=== PATIENT | male | born 1940 | race Caucasian/White ===

== ENCOUNTER 2016-02-27 16:50 | Inpatient (IN) | payer MEDICARE, OTHER ==
[2016-02-27] MEDS ORDERED: Budesonide 0.5 MG/2 ML NEB NEB PRN (21:20)
[2016-02-27] MEDS ORDERED: Dextrose 50% Abboject 50 ML SYRINGE SLOW IVP PRN (21:28)
[2016-02-27] MEDS ORDERED: Dextrose 5% in Water 1,000 ML IV PRN (21:28)
[2016-02-27] MEDS ORDERED: HumaLOG 300 UNITS/3 ML VIAL SC PRN (21:28)
[2016-02-27] MEDS: Calcium Carbonate 500 MG ChewTAB PO PRN (22:11)
[2016-02-28] MEDS: Acetaminophen 500 MG TAB PO PRN (01:55)
[2016-02-28] MEDS: Mupirocin 2% Ointment 22 GM Tube TOP SCH ×3 (01:57→20:49)
[2016-02-28] MEDS: Calcium Carbonate 500 MG ChewTAB PO PRN ×2 (03:03→09:31)
[2016-02-28] MEDS ORDERED: Sodium Chloride 0.9% 10 ML ONE ×2 (07:34→08:13)
[2016-02-28] MEDS ORDERED: Furosemide 100 MG/10 ML VIAL ONE (08:13)
[2016-02-28] MEDS: Arformoterol 15 MCG/2 ML NEB NEB SCH ×2 (08:31→20:57)
[2016-02-28 08:34] LABS: #Basophils 0.1 thou/uL (0.0-0.2); #Eosinphils 0.3 thou/uL (0.0-0.7); #Lymphocytes 2.6 thou/uL (1.20-3.40); #Monocytes 1.2 thou/uL (0.11-0.59); #Neutrophils 8.4 thou/uL (1.40-6.50); %Basophils 0.7 % (0.0-1.0); %Eosinophils 2.6 % (0.0-10.0); %Monocytes 9.1 % (0.0-10.0); Hematocrit 39.3 % (42.0-52.0); Mean Platelet Volume 6.8 fL (7.4-10.4); Red Blood Cell (RBC) Count 4.53 mill/uL (4.70-6.10); White Blood Cell (WBC) Count 12.6 thou/uL (4.8-10.8)
[2016-02-28] MEDS: Hydroxychloroquine Sulfate 200 MG TAB PO SCH (08:35)
[2016-02-28] MEDS: predniSONE 20 MG TAB PO SCH (08:35)
[2016-02-28] MEDS: Carvedilol 25 MG TAB PO SCH ×2 (08:35→20:53)
[2016-02-28] MEDS: Valsartan 80 MG TAB PO SCH (08:35)
[2016-02-28] MEDS: FLUoxetine HCl 10 MG CAP PO SCH ×2 (08:36→20:52)
[2016-02-28] MEDS: Sucralfate 1 GM TAB PO SCH ×4 (08:36→20:52)
[2016-02-28 08:40] LABS: ALT (SGPT) 22 U/L (0-55); AST (SGOT) 18 U/L (5-34); Alkaline Phosphatase 99 U/L (40-150); Anion Gap 12 mmol/L (10-20); BUN (Urea Nitrogen) 25 mg/dL (8.4-25.7); Bilirubin, Total 0.6 mg/dL (0.2-1.2); Calc. Creatinine Clearance 122 mL/min (70-130); Calcium 9.7 mg/dL (7.8-10.44); Carbon Dioxide 35 mmol/L (23-31); Chloride 100 mmol/L (98-107); Estimated GFR-MDRD 68; Globulin 2.9 g/dL (2.4-3.5); Protein, Total 6.5 g/dL (5.8-8.1)
[2016-02-28] MEDS ORDERED: Furosemide 100 MG/10 ML VIAL SLOW IVP SCH ×2 (08:45→15:00)
[2016-02-28] MEDS ORDERED: Potassium Chloride 10 MEQ TAB PO SCH (08:45)
[2016-02-28] MEDS: Furosemide 40 MG TAB PO SCH (08:47)
[2016-02-28] MEDS: glyBURIDE 5 MG TAB PO SCH (08:58)
[2016-02-28] MEDS ORDERED: PRENATAL VITAMINS PO SCH (09:00)
--- NOTE | 2016-02-28 15:41 | RAD ---
CHEST 2 VIEWS: DATE: 02/28/16. COMPARISON: Comparison is made with a 02/21/16 study done at [facility]. FINDINGS: There are no adverse changes in the interval. The heart size is stable. There is no congestive ch pancho or pleural effusion. No major lobar infiltrate was seen. There is a small amount of retrocard iac streaking, but I cannot confirm an infiltrate on the PA view. IMPRESSION: Minimal retrocardiac streaking which may or may not be significant. Little change since January. POS: HOME
[2016-02-28] MEDS: HumaLOG 300 UNITS/3 ML VIAL SC PRN (17:13)
[2016-02-28] MEDS ORDERED: Milk Of Magnesia 30 ML UDCUP PO PRN (19:20)
[2016-02-28] MEDS ORDERED: Polyethylene Glycol 3350 17 GM Packet PO PRN (19:22)
[2016-02-28] MEDS: Rivaroxaban 10 MG TAB PO SCH (20:52)
[2016-02-29] MEDS: Calcium Carbonate 500 MG ChewTAB PO PRN ×2 (02:19→08:58)
[2016-02-29] MEDS: Acetaminophen 500 MG TAB PO PRN ×2 (02:38→08:59)
[2016-02-29 06:25] LABS: ALT (SGPT) 19 U/L (0-55); AST (SGOT) 17 U/L (5-34); Alkaline Phosphatase 95 U/L (40-150); Anion Gap 12 mmol/L (10-20); BUN (Urea Nitrogen) 30 mg/dL (8.4-25.7); Bilirubin, Total 0.7 mg/dL (0.2-1.2); Calc. Creatinine Clearance 106 mL/min (70-130); Calcium 9.4 mg/dL (7.8-10.44); Carbon Dioxide 35 mmol/L (23-31); Chloride 101 mmol/L (98-107); Estimated GFR-MDRD 58; Globulin 2.7 g/dL (2.4-3.5); Protein, Total 6.2 g/dL (5.8-8.1)
[2016-02-29] MEDS: Valsartan 80 MG TAB PO SCH (08:41)
[2016-02-29] MEDS: Sucralfate 1 GM TAB PO SCH ×4 (08:42→20:48)
[2016-02-29] MEDS: glyBURIDE 5 MG TAB PO SCH (08:43)
[2016-02-29] MEDS: FLUoxetine HCl 10 MG CAP PO SCH ×2 (08:43→20:49)
[2016-02-29] MEDS: Furosemide 40 MG TAB PO SCH (08:44)
[2016-02-29] MEDS: Carvedilol 25 MG TAB PO SCH ×2 (08:44→20:50)
[2016-02-29] MEDS: Hydroxychloroquine Sulfate 200 MG TAB PO SCH (08:45)
[2016-02-29] MEDS: predniSONE 20 MG TAB PO SCH (08:45)
[2016-02-29] MEDS: Arformoterol 15 MCG/2 ML NEB NEB SCH ×2 (08:45→20:51)
[2016-02-29] MEDS: Mupirocin 2% Ointment 22 GM Tube TOP SCH ×2 (08:47→20:44)
[2016-02-29] MEDS ORDERED: Fluticasone Propionate Nasal Spray 16 gm Bottle NASAL SCH ×2 (10:15→11:00)
[2016-02-29] MEDS: HumaLOG 300 UNITS/3 ML VIAL SC PRN ×2 (12:37→17:40)
[2016-02-29] MEDS ORDERED: Furosemide 100 MG/10 ML VIAL SLOW IVP SCH (14:00)
[2016-02-29] MEDS ORDERED: Potassium Chloride 10 MEQ TAB PO SCH (14:00)
[2016-02-29] MEDS: Rivaroxaban 10 MG TAB PO SCH (20:48)
[2016-03-01] MEDS: Arformoterol 15 MCG/2 ML NEB NEB SCH ×2 (07:53→20:35)
[2016-03-01] MEDS: Sucralfate 1 GM TAB PO SCH ×4 (08:05→20:34)
[2016-03-01] MEDS: FLUoxetine HCl 10 MG CAP PO SCH ×2 (08:05→20:33)
[2016-03-01] MEDS: glyBURIDE 5 MG TAB PO SCH (08:06)
[2016-03-01] MEDS: Carvedilol 25 MG TAB PO SCH ×2 (08:07→20:34)
[2016-03-01] MEDS: Furosemide 40 MG TAB PO SCH (08:07)
[2016-03-01] MEDS: Hydroxychloroquine Sulfate 200 MG TAB PO SCH (08:07)
[2016-03-01] MEDS: Mupirocin 2% Ointment 22 GM Tube TOP SCH ×2 (08:08→20:37)
[2016-03-01] MEDS: predniSONE 20 MG TAB PO SCH (08:08)
[2016-03-01] MEDS: Valsartan 80 MG TAB PO SCH (08:08)
[2016-03-01] MEDS: Fluticasone Propionate Nasal Spray 16 gm Bottle NASAL SCH (08:09)
[2016-03-01] MEDS: Sodium Chloride 0.9% 10 ML ONE ×2 (08:45→16:14)
[2016-03-01 10:07] LABS: ALT (SGPT) 19 U/L (0-55); AST (SGOT) 16 U/L (5-34); Alkaline Phosphatase 103 U/L (40-150); Anion Gap 12 mmol/L (10-20); BUN (Urea Nitrogen) 28 mg/dL (8.4-25.7); Bilirubin, Total 0.5 mg/dL (0.2-1.2); Calc. Creatinine Clearance 113 mL/min (70-130); Carbon Dioxide 33 mmol/L (23-31); Chloride 101 mmol/L (98-107); Estimated GFR-MDRD 62; Globulin 2.7 g/dL (2.4-3.5); Protein, Total 6.1 g/dL (5.8-8.1)
[2016-03-01] MEDS: HumaLOG 300 UNITS/3 ML VIAL SC PRN ×2 (13:10→17:46)
--- NOTE | 2016-03-01 15:43 | RAD ---
CHEST THREE VIEWS: Date: 03-01-16 Technique: Two PA views and one lateral were obtained and compared with a 02-28-16 study. FINDINGS: There has been no significant interval change. The heart size remains normal. There are no congest soheila finding or pleural effusions. No focal pulmonary infiltrates were seen. IMPRESSION: No acute findings. POS: HOME
[2016-03-01] MEDS ORDERED: Potassium Chloride 10 MEQ TAB PO SCH (16:00)
[2016-03-01] MEDS: Furosemide 100 MG/10 ML VIAL SLOW IVP SCH (16:12)
[2016-03-01] MEDS ORDERED: Hydrocortisone Acetate 25 MG Suppository PR PRN (18:39)
[2016-03-01] MEDS: Rivaroxaban 10 MG TAB PO SCH (20:33)
[2016-03-01] MEDS: Acetaminophen 500 MG TAB PO PRN (20:34)
[2016-03-02 07:45] LABS: ALT (SGPT) 19 U/L (0-55); AST (SGOT) 15 U/L (5-34); Alkaline Phosphatase 92 U/L (40-150); Anion Gap 9 mmol/L (10-20); BUN (Urea Nitrogen) 27 mg/dL (8.4-25.7); Bilirubin, Total 0.5 mg/dL (0.2-1.2); Calc. Creatinine Clearance 120 mL/min (70-130); Calcium 9.1 mg/dL (7.8-10.44); Carbon Dioxide 37 mmol/L (23-31); Chloride 100 mmol/L (98-107); Estimated GFR-MDRD 66; Globulin 2.7 g/dL (2.4-3.5); Protein, Total 6.1 g/dL (5.8-8.1)
[2016-03-02] MEDS: predniSONE 20 MG TAB PO SCH (08:20)
[2016-03-02] MEDS: Sucralfate 1 GM TAB PO SCH ×4 (08:20→21:02)
[2016-03-02] MEDS: glyBURIDE 5 MG TAB PO SCH (08:20)
[2016-03-02] MEDS: FLUoxetine HCl 10 MG CAP PO SCH ×2 (08:35→21:01)
[2016-03-02] MEDS: Valsartan 80 MG TAB PO SCH (08:36)
[2016-03-02] MEDS: Stress 600 With Zinc 1 TAB PO SCH (08:36)
[2016-03-02] MEDS: Mupirocin 2% Ointment 22 GM Tube TOP SCH ×2 (08:37→23:01)
[2016-03-02] MEDS: Hydroxychloroquine Sulfate 200 MG TAB PO SCH (08:37)
[2016-03-02] MEDS: Carvedilol 25 MG TAB PO SCH ×2 (08:37→21:03)
[2016-03-02] MEDS: Fluticasone Propionate Nasal Spray 16 gm Bottle NASAL SCH (08:38)
[2016-03-02] MEDS: Arformoterol 15 MCG/2 ML NEB NEB SCH ×2 (08:39→21:04)
[2016-03-02] MEDS: Furosemide 100 MG/10 ML VIAL SLOW IVP SCH (10:16)
[2016-03-02] MEDS: HumaLOG 300 UNITS/3 ML VIAL SC PRN ×2 (11:51→17:26)
[2016-03-02] MEDS: Rivaroxaban 10 MG TAB PO SCH (21:01)
[2016-03-03] MEDS: SULFASALAZINE 500 MG PO SCH (08:26)
[2016-03-03] MEDS: glyBURIDE 5 MG TAB PO SCH (08:27)
[2016-03-03] MEDS: predniSONE 20 MG TAB PO SCH (08:27)
[2016-03-03] MEDS: Sucralfate 1 GM TAB PO SCH ×4 (08:27→20:26)
[2016-03-03] MEDS: Potassium Chloride 10 MEQ TAB PO SCH (08:28)
[2016-03-03] MEDS: Stress 600 With Zinc 1 TAB PO SCH (08:36)
[2016-03-03] MEDS: FLUoxetine HCl 10 MG CAP PO SCH ×2 (08:37→20:26)
[2016-03-03] MEDS: Hydroxychloroquine Sulfate 200 MG TAB PO SCH (08:37)
[2016-03-03] MEDS: Valsartan 80 MG TAB PO SCH (08:37)
[2016-03-03] MEDS: Carvedilol 25 MG TAB PO SCH ×2 (08:38→20:26)
[2016-03-03] MEDS: Furosemide 100 MG/10 ML VIAL SLOW IVP SCH (08:44)
[2016-03-03] MEDS: Arformoterol 15 MCG/2 ML NEB NEB SCH ×2 (08:45→20:27)
[2016-03-03] MEDS: Mupirocin 2% Ointment 22 GM Tube TOP SCH ×2 (08:58→20:32)
[2016-03-03] MEDS: Fluticasone Propionate Nasal Spray 16 gm Bottle NASAL SCH (09:19)
[2016-03-03] MEDS: HumaLOG 300 UNITS/3 ML VIAL SC PRN (12:11)
[2016-03-03] MEDS: guaiFENesin ER 600 MG TAB PO PRN (13:25)
[2016-03-03] MEDS ORDERED: Furosemide 100 MG/10 ML VIAL SLOW IVP ONE (15:00)
[2016-03-03] MEDS: Acetaminophen 500 MG TAB PO PRN (20:26)
[2016-03-03] MEDS: Rivaroxaban 10 MG TAB PO SCH (20:27)
[2016-03-04] MEDS: guaiFENesin ER 600 MG TAB PO PRN (05:28)
[2016-03-04 06:14] LABS: ALT (SGPT) 17 U/L (0-55); AST (SGOT) 15 U/L (5-34); Alkaline Phosphatase 90 U/L (40-150); Anion Gap 12 mmol/L (10-20); BUN (Urea Nitrogen) 31 mg/dL (8.4-25.7); Bilirubin, Total 0.4 mg/dL (0.2-1.2); Calc. Creatinine Clearance 115 mL/min (70-130); Calcium 9.3 mg/dL (7.8-10.44); Carbon Dioxide 33 mmol/L (23-31); Chloride 101 mmol/L (98-107); Estimated GFR-MDRD 62; Globulin 2.8 g/dL (2.4-3.5); Protein, Total 6.4 g/dL (5.8-8.1)
[2016-03-04] MEDS: Arformoterol 15 MCG/2 ML NEB NEB SCH ×2 (07:25→21:12)
[2016-03-04] MEDS: glyBURIDE 5 MG TAB PO SCH (07:26)
[2016-03-04] MEDS: Sucralfate 1 GM TAB PO SCH ×4 (07:26→21:03)
[2016-03-04] MEDS ORDERED: predniSONE 10 MG TAB PO SCH (08:00)
[2016-03-04] MEDS: FLUoxetine HCl 10 MG CAP PO SCH ×2 (08:50→21:03)
[2016-03-04] MEDS: Potassium Chloride 10 MEQ TAB PO SCH (08:50)
[2016-03-04] MEDS: Valsartan 80 MG TAB PO SCH (08:51)
[2016-03-04] MEDS: Stress 600 With Zinc 1 TAB PO SCH (08:51)
[2016-03-04] MEDS: Furosemide 100 MG/10 ML VIAL SLOW IVP SCH (08:57)
[2016-03-04] MEDS: Carvedilol 25 MG TAB PO SCH ×2 (08:57→21:03)
[2016-03-04] MEDS: Hydroxychloroquine Sulfate 200 MG TAB PO SCH (08:57)
[2016-03-04] MEDS: Mupirocin 2% Ointment 22 GM Tube TOP SCH ×2 (09:04→21:03)
[2016-03-04] MEDS: Fluticasone Propionate Nasal Spray 16 gm Bottle NASAL SCH (09:04)
[2016-03-04] MEDS: HumaLOG 300 UNITS/3 ML VIAL SC PRN (12:01)
[2016-03-04] MEDS: Rivaroxaban 10 MG TAB PO SCH (21:03)
[2016-03-05] MEDS: Calcium Carbonate 500 MG ChewTAB PO PRN (00:56)
[2016-03-05] MEDS: Hydrocortisone 1% Cream 30 GM TUBE TOP PRN (02:00)
[2016-03-05] MEDS: Arformoterol 15 MCG/2 ML NEB NEB SCH ×2 (08:42→21:08)
[2016-03-05] MEDS: Mupirocin 2% Ointment 22 GM Tube TOP SCH ×2 (08:47→21:03)
[2016-03-05] MEDS: Fluticasone Propionate Nasal Spray 16 gm Bottle NASAL SCH (08:49)
[2016-03-05] MEDS: Valsartan 80 MG TAB PO SCH (08:50)
[2016-03-05] MEDS: Sucralfate 1 GM TAB PO SCH ×4 (08:50→21:04)
[2016-03-05] MEDS: Carvedilol 25 MG TAB PO SCH ×2 (08:50→21:07)
[2016-03-05] MEDS: glyBURIDE 5 MG TAB PO SCH (08:50)
[2016-03-05] MEDS: FLUoxetine HCl 10 MG CAP PO SCH ×2 (08:52→21:06)
[2016-03-05] MEDS: Potassium Chloride 10 MEQ TAB PO SCH (08:52)
[2016-03-05] MEDS: Stress 600 With Zinc 1 TAB PO SCH (08:52)
[2016-03-05] MEDS: Hydroxychloroquine Sulfate 200 MG TAB PO SCH (08:53)
[2016-03-05] MEDS: predniSONE 10 MG TAB PO SCH (08:56)
[2016-03-05] MEDS: Furosemide 100 MG/10 ML VIAL SLOW IVP SCH (09:05)
[2016-03-05] MEDS ORDERED: Potassium Chloride 10 MEQ TAB PO SCH (15:00)
[2016-03-05] MEDS ORDERED: Furosemide 100 MG/10 ML VIAL SLOW IVP SCH (15:00)
[2016-03-05] MEDS ORDERED: Potassium Chloride 20 MEQ TAB PO SCH (15:00)
[2016-03-05] MEDS: Rivaroxaban 10 MG TAB PO SCH (21:06)
[2016-03-06 05:40] LABS: ALT (SGPT) 22 U/L (0-55); AST (SGOT) 21 U/L (5-34); Alkaline Phosphatase 89 U/L (40-150); Anion Gap 13 mmol/L (10-20); Bilirubin, Total 0.4 mg/dL (0.2-1.2); Calc. Creatinine Clearance 118 mL/min (70-130); Carbon Dioxide 29 mmol/L (23-31); Chloride 103 mmol/L (98-107); Estimated GFR-MDRD 63; Globulin 2.7 g/dL (2.4-3.5); Protein, Total 6.1 g/dL (5.8-8.1)
[2016-03-06 07:45] LABS: BUN (Urea Nitrogen) 33 mg/dL (8.4-25.7)
[2016-03-06] MEDS: predniSONE 10 MG TAB PO SCH (09:30)
[2016-03-06] MEDS: Carvedilol 25 MG TAB PO SCH ×2 (09:30→20:56)
[2016-03-06] MEDS: Potassium Chloride 10 MEQ TAB PO SCH ×3 (09:30→15:25)
[2016-03-06] MEDS: Valsartan 80 MG TAB PO SCH (09:30)
[2016-03-06] MEDS: Mupirocin 2% Ointment 22 GM Tube TOP SCH ×2 (09:30→20:58)
[2016-03-06] MEDS: glyBURIDE 5 MG TAB PO SCH (09:30)
[2016-03-06] MEDS: Fluticasone Propionate Nasal Spray 16 gm Bottle NASAL SCH (09:30)
[2016-03-06] MEDS: FLUoxetine HCl 10 MG CAP PO SCH ×2 (09:30→20:55)
[2016-03-06] MEDS: Hydroxychloroquine Sulfate 200 MG TAB PO SCH (09:30)
[2016-03-06] MEDS: Sucralfate 1 GM TAB PO SCH ×4 (09:30→20:56)
[2016-03-06] MEDS: Stress 600 With Zinc 1 TAB PO SCH (09:30)
[2016-03-06] MEDS: Furosemide 100 MG/10 ML VIAL SLOW IVP SCH ×2 (09:30→15:25)
[2016-03-06] MEDS: Arformoterol 15 MCG/2 ML NEB NEB SCH ×2 (09:40→20:56)
[2016-03-06] MEDS: HumaLOG 300 UNITS/3 ML VIAL SC PRN ×2 (13:09→18:17)
[2016-03-06] MEDS: Rivaroxaban 10 MG TAB PO SCH (20:55)
[2016-03-07] MEDS: Acetaminophen 500 MG TAB PO PRN (00:50)
[2016-03-07] MEDS: Calcium Carbonate 500 MG ChewTAB PO PRN (00:51)
[2016-03-07 05:40] LABS: Anion Gap 12 mmol/L (10-20); BUN (Urea Nitrogen) 36 mg/dL (8.4-25.7); Calc. Creatinine Clearance 109 mL/min (70-130); Calcium 9.2 mg/dL (7.8-10.44); Carbon Dioxide 30 mmol/L (23-31); Chloride 103 mmol/L (98-107); Estimated GFR-MDRD 59
[2016-03-07] MEDS: Fluticasone Propionate Nasal Spray 16 gm Bottle NASAL SCH (09:18)
[2016-03-07] MEDS: Stress 600 With Zinc 1 TAB PO SCH (09:19)
[2016-03-07] MEDS: predniSONE 10 MG TAB PO SCH (09:19)
[2016-03-07] MEDS: Valsartan 80 MG TAB PO SCH (09:20)
[2016-03-07] MEDS: Hydroxychloroquine Sulfate 200 MG TAB PO SCH (09:20)
[2016-03-07] MEDS: Potassium Chloride 10 MEQ TAB PO SCH ×2 (09:21→14:59)
[2016-03-07] MEDS: Carvedilol 25 MG TAB PO SCH ×2 (09:21→20:27)
[2016-03-07] MEDS: glyBURIDE 5 MG TAB PO SCH (09:21)
[2016-03-07] MEDS: Sucralfate 1 GM TAB PO SCH ×4 (09:21→20:26)
[2016-03-07] MEDS: FLUoxetine HCl 10 MG CAP PO SCH ×2 (09:22→20:26)
[2016-03-07] MEDS: Furosemide 100 MG/10 ML VIAL SLOW IVP SCH ×2 (09:25→14:59)
[2016-03-07] MEDS: Mupirocin 2% Ointment 22 GM Tube TOP SCH ×2 (09:26→20:33)
[2016-03-07] MEDS: Arformoterol 15 MCG/2 ML NEB NEB SCH ×2 (09:27→20:24)
[2016-03-07] MEDS: Rivaroxaban 10 MG TAB PO SCH (20:26)
[2016-03-08] MEDS: Arformoterol 15 MCG/2 ML NEB NEB SCH ×2 (08:20→21:08)
[2016-03-08] MEDS: Furosemide 100 MG/10 ML VIAL SLOW IVP SCH ×2 (08:33→16:10)
[2016-03-08] MEDS: Hydroxychloroquine Sulfate 200 MG TAB PO SCH (08:41)
[2016-03-08] MEDS: Stress 600 With Zinc 1 TAB PO SCH (08:42)
[2016-03-08] MEDS: Carvedilol 25 MG TAB PO SCH ×2 (08:42→20:56)
[2016-03-08] MEDS: FLUoxetine HCl 10 MG CAP PO SCH ×2 (08:43→20:55)
[2016-03-08] MEDS: predniSONE 10 MG TAB PO SCH (08:43)
[2016-03-08] MEDS: Valsartan 80 MG TAB PO SCH (08:43)
[2016-03-08] MEDS: glyBURIDE 5 MG TAB PO SCH (08:44)
[2016-03-08] MEDS: Potassium Chloride 10 MEQ TAB PO SCH ×2 (08:44→16:10)
[2016-03-08] MEDS: Sucralfate 1 GM TAB PO SCH ×4 (08:44→20:54)
[2016-03-08] MEDS: Fluticasone Propionate Nasal Spray 16 gm Bottle NASAL SCH (08:45)
[2016-03-08] MEDS: Mupirocin 2% Ointment 22 GM Tube TOP SCH ×2 (08:45→20:56)
[2016-03-08 09:48] LABS: Anion Gap 14 mmol/L (10-20); BUN (Urea Nitrogen) 36 mg/dL (8.4-25.7); Calc. Creatinine Clearance 111 mL/min (70-130); Calcium 9.2 mg/dL (7.8-10.44); Carbon Dioxide 30 mmol/L (23-31); Chloride 101 mmol/L (98-107); Estimated GFR-MDRD 60
[2016-03-08] MEDS: Rivaroxaban 10 MG TAB PO SCH (20:54)
[2016-03-08] MEDS: Calcium Carbonate 500 MG ChewTAB PO PRN (23:26)
[2016-03-09] MEDS: Calcium Carbonate 500 MG ChewTAB PO PRN ×2 (05:49→21:33)
[2016-03-09] MEDS: predniSONE 10 MG TAB PO SCH (09:09)
[2016-03-09] MEDS: glyBURIDE 5 MG TAB PO SCH (09:11)
[2016-03-09] MEDS: Sucralfate 1 GM TAB PO SCH ×4 (09:11→21:44)
[2016-03-09] MEDS: FLUoxetine HCl 10 MG CAP PO SCH ×2 (09:50→21:44)
[2016-03-09] MEDS: Stress 600 With Zinc 1 TAB PO SCH (09:50)
[2016-03-09] MEDS: Valsartan 80 MG TAB PO SCH (09:51)
[2016-03-09] MEDS: Carvedilol 25 MG TAB PO SCH ×2 (09:52→21:44)
[2016-03-09] MEDS: Potassium Chloride 10 MEQ TAB PO SCH ×2 (09:52→15:54)
[2016-03-09] MEDS: Fluticasone Propionate Nasal Spray 16 gm Bottle NASAL SCH (09:57)
[2016-03-09] MEDS: Furosemide 100 MG/10 ML VIAL SLOW IVP SCH ×2 (09:58→15:55)
[2016-03-09] MEDS: Mupirocin 2% Ointment 22 GM Tube TOP SCH ×2 (09:59→21:45)
[2016-03-09] MEDS: Hydroxychloroquine Sulfate 200 MG TAB PO SCH (11:45)
[2016-03-09] MEDS: HumaLOG 300 UNITS/3 ML VIAL SC PRN (12:32)
[2016-03-09] MEDS: Arformoterol 15 MCG/2 ML NEB NEB SCH ×2 (14:06→21:39)
[2016-03-09] MEDS: Rivaroxaban 10 MG TAB PO SCH (21:44)
[2016-03-10] MEDS: Calcium Carbonate 500 MG ChewTAB PO PRN ×3 (00:20→20:04)
[2016-03-10 05:35] LABS: #Basophils 0.1 thou/uL (0.0-0.2); #Eosinphils 0.1 thou/uL (0.0-0.7); #Monocytes 0.9 thou/uL (0.11-0.59); %Eosinophils 1.4 % (0.0-10.0); %Monocytes 10.2 % (0.0-10.0); Hematocrit 37.9 % (42.0-52.0); Mean Platelet Volume 7.1 fL (7.4-10.4); Red Blood Cell (RBC) Count 4.29 mill/uL (4.70-6.10); White Blood Cell (WBC) Count 9.1 thou/uL (4.8-10.8)
[2016-03-10 05:48] LABS: ALT (SGPT) 19 U/L (0-55); AST (SGOT) 15 U/L (5-34); Alkaline Phosphatase 100 U/L (40-150); Anion Gap 13 mmol/L (10-20); BUN (Urea Nitrogen) 35 mg/dL (8.4-25.7); Bilirubin, Total 0.5 mg/dL (0.2-1.2); Calc. Creatinine Clearance 114 mL/min (70-130); Calcium 9.5 mg/dL (7.8-10.44); Carbon Dioxide 32 mmol/L (23-31); Chloride 104 mmol/L (98-107); Estimated GFR-MDRD 62; Globulin 2.7 g/dL (2.4-3.5); Protein, Total 6.1 g/dL (5.8-8.1)
[2016-03-10] MEDS: glyBURIDE 5 MG TAB PO SCH (08:31)
[2016-03-10] MEDS: Sucralfate 1 GM TAB PO SCH ×4 (08:32→20:26)
[2016-03-10] MEDS: Stress 600 With Zinc 1 TAB PO SCH (08:32)
[2016-03-10] MEDS: FLUoxetine HCl 10 MG CAP PO SCH ×2 (08:33→20:27)
[2016-03-10] MEDS: Potassium Chloride 10 MEQ TAB PO SCH ×2 (08:34→14:39)
[2016-03-10] MEDS: Valsartan 80 MG TAB PO SCH (08:36)
[2016-03-10] MEDS: Hydroxychloroquine Sulfate 200 MG TAB PO SCH (08:37)
[2016-03-10] MEDS: Carvedilol 25 MG TAB PO SCH ×2 (08:38→20:27)
[2016-03-10] MEDS: Fluticasone Propionate Nasal Spray 16 gm Bottle NASAL SCH (08:39)
[2016-03-10] MEDS: Furosemide 100 MG/10 ML VIAL SLOW IVP SCH (08:40)
[2016-03-10] MEDS: predniSONE 10 MG TAB PO SCH (08:50)
[2016-03-10] MEDS: Arformoterol 15 MCG/2 ML NEB NEB SCH ×2 (08:50→20:40)
[2016-03-10] MEDS: Mupirocin 2% Ointment 22 GM Tube TOP SCH ×2 (08:59→20:41)
[2016-03-10] MEDS ORDERED: Metolazone 5 MG TAB PO SCH (14:00)
[2016-03-10] MEDS: Furosemide 40 MG TAB PO SCH (20:26)
[2016-03-10] MEDS: Rivaroxaban 10 MG TAB PO SCH (20:27)
[2016-03-11] MEDS: Sucralfate 1 GM TAB PO SCH ×4 (07:55→20:59)
[2016-03-11] MEDS: glyBURIDE 5 MG TAB PO SCH (07:56)
[2016-03-11] MEDS: predniSONE 10 MG TAB PO SCH (07:56)
[2016-03-11] MEDS: Metolazone 5 MG TAB PO SCH (08:03)
[2016-03-11] MEDS: Stress 600 With Zinc 1 TAB PO SCH (08:05)
[2016-03-11] MEDS: FLUoxetine HCl 10 MG CAP PO SCH ×2 (08:05→20:59)
[2016-03-11] MEDS: Valsartan 80 MG TAB PO SCH (08:07)
[2016-03-11] MEDS: Hydroxychloroquine Sulfate 200 MG TAB PO SCH (08:07)
[2016-03-11] MEDS: Carvedilol 25 MG TAB PO SCH ×2 (08:08→20:58)
[2016-03-11] MEDS: Mupirocin 2% Ointment 22 GM Tube TOP SCH ×2 (08:38→20:59)
[2016-03-11] MEDS: Furosemide 40 MG TAB PO SCH ×2 (08:39→20:58)
[2016-03-11] MEDS: Fluticasone Propionate Nasal Spray 16 gm Bottle NASAL SCH (08:39)
[2016-03-11] MEDS: Potassium Chloride 10 MEQ TAB PO SCH ×2 (08:39→14:48)
[2016-03-11] MEDS: Arformoterol 15 MCG/2 ML NEB NEB SCH ×2 (08:40→20:57)
[2016-03-11] MEDS: Acetaminophen 500 MG TAB PO PRN (11:22)
[2016-03-11] MEDS ORDERED: Budesonide 0.5 MG/2 ML NEB NEB PRN (14:05)
[2016-03-11] MEDS: Rivaroxaban 10 MG TAB PO SCH (20:58)
[2016-03-12] MEDS: Arformoterol 15 MCG/2 ML NEB NEB SCH ×2 (09:22→22:23)
[2016-03-12] MEDS: Furosemide 40 MG TAB PO SCH ×2 (09:26→15:18)
[2016-03-12] MEDS: Potassium Chloride 10 MEQ TAB PO SCH ×2 (09:26→15:19)
[2016-03-12] MEDS: predniSONE 10 MG TAB PO SCH (09:27)
[2016-03-12] MEDS: glyBURIDE 5 MG TAB PO SCH (09:30)
[2016-03-12] MEDS: FLUoxetine HCl 10 MG CAP PO SCH ×2 (09:30→20:48)
[2016-03-12] MEDS: Sucralfate 1 GM TAB PO SCH ×4 (09:31→20:42)
[2016-03-12] MEDS: Valsartan 80 MG TAB PO SCH (09:32)
[2016-03-12] MEDS: Carvedilol 25 MG TAB PO SCH ×2 (09:32→20:42)
[2016-03-12] MEDS: Stress 600 With Zinc 1 TAB PO SCH (09:33)
[2016-03-12] MEDS: Hydroxychloroquine Sulfate 200 MG TAB PO SCH (09:33)
[2016-03-12] MEDS: Metolazone 5 MG TAB PO SCH (09:34)
[2016-03-12] MEDS: Mupirocin 2% Ointment 22 GM Tube TOP SCH ×2 (09:35→20:47)
[2016-03-12] MEDS: Fluticasone Propionate Nasal Spray 16 gm Bottle NASAL SCH (09:35)
[2016-03-12] MEDS: Acetaminophen 500 MG TAB PO PRN (15:24)
[2016-03-12] MEDS: Rivaroxaban 10 MG TAB PO SCH (20:42)
[2016-03-12] MEDS ORDERED: Rivaroxaban 10 MG TAB ONE (20:45)
[2016-03-13] MEDS: Stress 600 With Zinc 1 TAB PO SCH (08:17)
[2016-03-13] MEDS: glyBURIDE 5 MG TAB PO SCH (08:18)
[2016-03-13] MEDS: Potassium Chloride 10 MEQ TAB PO SCH ×2 (08:18→14:57)
[2016-03-13] MEDS: Sucralfate 1 GM TAB PO SCH ×4 (08:18→20:52)
[2016-03-13] MEDS: Furosemide 40 MG TAB PO SCH ×2 (08:20→14:57)
[2016-03-13] MEDS: Valsartan 80 MG TAB PO SCH (08:21)
[2016-03-13] MEDS: predniSONE 10 MG TAB PO SCH (08:21)
[2016-03-13] MEDS: Metolazone 5 MG TAB PO SCH (08:24)
[2016-03-13] MEDS: Hydroxychloroquine Sulfate 200 MG TAB PO SCH (08:26)
[2016-03-13] MEDS: Carvedilol 25 MG TAB PO SCH ×2 (08:26→20:55)
[2016-03-13] MEDS: Fluticasone Propionate Nasal Spray 16 gm Bottle NASAL SCH (08:30)
[2016-03-13] MEDS: Mupirocin 2% Ointment 22 GM Tube TOP SCH ×2 (08:31→20:51)
[2016-03-13] MEDS: Arformoterol 15 MCG/2 ML NEB NEB SCH ×2 (08:31→20:48)
[2016-03-13] MEDS: FLUoxetine HCl 10 MG CAP PO SCH ×2 (12:25→20:51)
[2016-03-13 19:08] LABS: #Basophils 0.1 thou/uL (0.0-0.2); #Eosinphils 0.1 thou/uL (0.0-0.7); #Lymphocytes 2.5 thou/uL (1.20-3.40); %Basophils 0.6 % (0.0-1.0); %Eosinophils 1.5 % (0.0-10.0); %Monocytes 10.1 % (0.0-10.0); Hematocrit 40.4 % (42.0-52.0); Mean Platelet Volume 6.7 fL (7.4-10.4); Red Blood Cell (RBC) Count 4.63 mill/uL (4.70-6.10); White Blood Cell (WBC) Count 9.7 thou/uL (4.8-10.8)
[2016-03-13 19:32] LABS: ALT (SGPT) 22 U/L (0-55); AST (SGOT) 18 U/L (5-34); Alkaline Phosphatase 105 U/L (40-150); Anion Gap 17 mmol/L (10-20); BUN (Urea Nitrogen) 54 mg/dL (8.4-25.7); Bilirubin, Total 0.6 mg/dL (0.2-1.2); Calc. Creatinine Clearance 55 mL/min (70-130); Calcium 9.9 mg/dL (7.8-10.44); Carbon Dioxide 36 mmol/L (23-31); Chloride 93 mmol/L (98-107); Estimated GFR-MDRD 28; Globulin 3.2 g/dL (2.4-3.5); Protein, Total 6.9 g/dL (5.8-8.1)
[2016-03-13] MEDS: Rivaroxaban 10 MG TAB PO SCH (20:54)
[2016-03-14] MEDS: Potassium Chloride 10 MEQ TAB PO SCH ×2 (08:20→14:52)
[2016-03-14] MEDS: FLUoxetine HCl 10 MG CAP PO SCH ×2 (08:21→20:33)
[2016-03-14] MEDS: Valsartan 80 MG TAB PO SCH (08:22)
[2016-03-14] MEDS: Carvedilol 25 MG TAB PO SCH ×2 (08:24→20:32)
[2016-03-14] MEDS: Hydroxychloroquine Sulfate 200 MG TAB PO SCH (08:25)
[2016-03-14] MEDS: Furosemide 40 MG TAB PO SCH (08:25)
[2016-03-14] MEDS: Sucralfate 1 GM TAB PO SCH ×4 (08:26→20:32)
[2016-03-14] MEDS: Arformoterol 15 MCG/2 ML NEB NEB SCH ×2 (08:27→20:29)
[2016-03-14] MEDS: glyBURIDE 5 MG TAB PO SCH (08:27)
[2016-03-14] MEDS: Stress 600 With Zinc 1 TAB PO SCH (08:27)
[2016-03-14] MEDS: Fluticasone Propionate Nasal Spray 16 gm Bottle NASAL SCH (08:34)
[2016-03-14] MEDS: Hydrocortisone 1% Cream 30 GM TUBE TOP PRN (08:34)
[2016-03-14] MEDS: Mupirocin 2% Ointment 22 GM Tube TOP SCH ×2 (09:35→20:30)
[2016-03-14] MEDS: Calcium Carbonate 500 MG ChewTAB PO PRN ×2 (14:05→18:44)
[2016-03-14] MEDS: Acetaminophen 500 MG TAB PO PRN (15:35)
[2016-03-14] MEDS: Rivaroxaban 10 MG TAB PO SCH (20:33)
[2016-03-14] MEDS ORDERED: Mag-Al Plus 1200 MG/1200 MG/120 MG/30 ML UDCUP PO SCH (21:15)
[2016-03-15 06:35] LABS: ALT (SGPT) 21 U/L (0-55); AST (SGOT) 18 U/L (5-34); Alkaline Phosphatase 102 U/L (40-150); Anion Gap 17 mmol/L (10-20); BUN (Urea Nitrogen) 62 mg/dL (8.4-25.7); Bilirubin, Total 0.7 mg/dL (0.2-1.2); Calc. Creatinine Clearance 65 mL/min (70-130); Calcium 9.8 mg/dL (7.8-10.44); Carbon Dioxide 35 mmol/L (23-31); Chloride 93 mmol/L (98-107); Estimated GFR-MDRD 33; Globulin 2.9 g/dL (2.4-3.5); Protein, Total 6.5 g/dL (5.8-8.1)
[2016-03-15] MEDS: Sucralfate 1 GM TAB PO SCH ×4 (07:47→20:58)
[2016-03-15] MEDS: glyBURIDE 5 MG TAB PO SCH (07:47)
[2016-03-15] MEDS: Fluticasone Propionate Nasal Spray 16 gm Bottle NASAL SCH (08:50)
[2016-03-15] MEDS: Hydrocortisone 1% Cream 30 GM TUBE TOP PRN (08:51)
[2016-03-15] MEDS: Mupirocin 2% Ointment 22 GM Tube TOP SCH ×2 (08:52→21:36)
[2016-03-15] MEDS: Potassium Chloride 10 MEQ TAB PO SCH ×2 (08:53→14:46)
[2016-03-15] MEDS: FLUoxetine HCl 10 MG CAP PO SCH ×2 (08:54→20:55)
[2016-03-15] MEDS: Valsartan 80 MG TAB PO SCH (08:55)
[2016-03-15] MEDS: Carvedilol 25 MG TAB PO SCH ×2 (08:57→20:55)
[2016-03-15] MEDS: Furosemide 40 MG TAB PO SCH (08:58)
[2016-03-15] MEDS: Arformoterol 15 MCG/2 ML NEB NEB SCH ×2 (08:58→20:54)
[2016-03-15] MEDS: Hydroxychloroquine Sulfate 200 MG TAB PO SCH (08:58)
[2016-03-15] MEDS: Stress 600 With Zinc 1 TAB PO SCH (08:58)
[2016-03-15] MEDS ORDERED: predniSONE 10 MG TAB PO SCH (09:00)
[2016-03-15] MEDS ORDERED: Potassium Chloride 20 MEQ TAB PO SCH (12:30)
[2016-03-15] MEDS: Rivaroxaban 10 MG TAB PO SCH (20:58)
[2016-03-16 06:30] LABS: Anion Gap 17 mmol/L (10-20); BUN (Urea Nitrogen) 57 mg/dL (8.4-25.7); Calc. Creatinine Clearance 81 mL/min (70-130); Calcium 9.8 mg/dL (7.8-10.44); Carbon Dioxide 36 mmol/L (23-31); Chloride 94 mmol/L (98-107); Estimated GFR-MDRD 43
--- NOTE | 2016-03-16 06:59 | RAD ---
CHEST 2 VIEWS: Date: 03/16/16 Comparison is made with the 03/01/16 study. FINDINGS: Heart size is stable. There is no congestion of vessels this morning. There are no lobar consolidati ons or effusions. The lungs are hyperexpanded with flattening of the diaphragm. No lobar consolidati ons appreciated. IMPRESSION: No focal pulmonary findings. No current evidence of vascular congestion. POS: HOME
[2016-03-16] MEDS: Sucralfate 1 GM TAB PO SCH ×4 (08:47→21:22)
[2016-03-16] MEDS: Stress 600 With Zinc 1 TAB PO SCH (08:48)
[2016-03-16] MEDS: glyBURIDE 5 MG TAB PO SCH (08:48)
[2016-03-16] MEDS: FLUoxetine HCl 10 MG CAP PO SCH ×2 (08:48→21:22)
[2016-03-16] MEDS: Furosemide 40 MG TAB PO SCH (08:49)
[2016-03-16] MEDS: Hydroxychloroquine Sulfate 200 MG TAB PO SCH (08:49)
[2016-03-16] MEDS: Carvedilol 25 MG TAB PO SCH ×2 (08:50→21:22)
[2016-03-16] MEDS: Valsartan 80 MG TAB PO SCH (08:50)
[2016-03-16] MEDS: Potassium Chloride 10 MEQ TAB PO SCH ×2 (08:50→16:24)
[2016-03-16] MEDS: Fluticasone Propionate Nasal Spray 16 gm Bottle NASAL SCH (08:51)
[2016-03-16] MEDS: Mupirocin 2% Ointment 22 GM Tube TOP SCH ×2 (08:53→21:25)
[2016-03-16] MEDS: Arformoterol 15 MCG/2 ML NEB NEB SCH ×2 (09:02→21:16)
[2016-03-16] MEDS: Rivaroxaban 10 MG TAB PO SCH (21:22)
[2016-03-16] MEDS: Hydrocortisone 1% Cream 30 GM TUBE TOP PRN (21:23)
[2016-03-17 05:40] VITALS: TEMP 98.1
[2016-03-17] MEDS: Mag-Al Plus 1200 MG/1200 MG/120 MG/30 ML UDCUP PO PRN ×2 (08:46→21:30)
[2016-03-17] MEDS: glyBURIDE 5 MG TAB PO SCH (08:46)
[2016-03-17] MEDS: Sucralfate 1 GM TAB PO SCH ×4 (08:46→21:15)
[2016-03-17] MEDS: Potassium Chloride 10 MEQ TAB PO SCH ×2 (09:23→15:29)
[2016-03-17] MEDS: Fluticasone Propionate Nasal Spray 16 gm Bottle NASAL SCH (09:23)
[2016-03-17] MEDS: FLUoxetine HCl 10 MG CAP PO SCH ×2 (09:25→21:15)
[2016-03-17] MEDS: Stress 600 With Zinc 1 TAB PO SCH (09:25)
[2016-03-17] MEDS: Furosemide 40 MG TAB PO SCH (09:25)
[2016-03-17] MEDS: Valsartan 80 MG TAB PO SCH (09:25)
[2016-03-17] MEDS: Carvedilol 25 MG TAB PO SCH ×2 (09:26→21:15)
[2016-03-17] MEDS: Hydroxychloroquine Sulfate 200 MG TAB PO SCH (09:26)
[2016-03-17] MEDS: Mupirocin 2% Ointment 22 GM Tube TOP SCH ×2 (09:26→21:14)
[2016-03-17] MEDS: Arformoterol 15 MCG/2 ML NEB NEB SCH ×2 (09:30→21:13)
[2016-03-17] MEDS: Rivaroxaban 10 MG TAB PO SCH (21:15)
[2016-03-18 06:35] VITALS: BMI 41.1
[2016-03-18 06:39] VITALS: BP 136/63
[2016-03-18 07:17] LABS: ALT (SGPT) 27 U/L (0-55); AST (SGOT) 21 U/L (5-34); Alkaline Phosphatase 100 U/L (40-150); Anion Gap 13 mmol/L (10-20); BUN (Urea Nitrogen) 46 mg/dL (8.4-25.7); Bilirubin, Total 0.7 mg/dL (0.2-1.2); Calc. Creatinine Clearance 89 mL/min (70-130); Calcium 9.1 mg/dL (7.8-10.44); Carbon Dioxide 35 mmol/L (23-31); Chloride 99 mmol/L (98-107); Estimated GFR-MDRD 48; Globulin 2.2 g/dL (2.4-3.5); Protein, Total 5.7 g/dL (5.8-8.1)
[2016-03-18 07:46] LABS: #Basophils 0.1 thou/uL (0.0-0.2); #Eosinphils 0.2 thou/uL (0.0-0.7); #Lymphocytes 3.1 thou/uL (1.20-3.40); #Neutrophils 4.1 thou/uL (1.40-6.50); %Basophils 1.1 % (0.0-1.0); %Eosinophils 2.5 % (0.0-10.0); %Monocytes 11.4 % (0.0-10.0); Hematocrit 35.6 % (42.0-52.0); Mean Platelet Volume 7.4 fL (7.4-10.4); Red Blood Cell (RBC) Count 4.12 mill/uL (4.70-6.10); White Blood Cell (WBC) Count 8.4 thou/uL (4.8-10.8)
[2016-03-18] MEDS: Mupirocin 2% Ointment 22 GM Tube TOP SCH (09:26)
[2016-03-18] MEDS: Fluticasone Propionate Nasal Spray 16 gm Bottle NASAL SCH (09:26)
[2016-03-18] MEDS: Arformoterol 15 MCG/2 ML NEB NEB SCH (09:27)
[2016-03-18] MEDS: Sucralfate 1 GM TAB PO SCH ×3 (09:31→18:15)
[2016-03-18] MEDS: FLUoxetine HCl 10 MG CAP PO SCH (09:31)
[2016-03-18] MEDS: Hydroxychloroquine Sulfate 200 MG TAB PO SCH (09:31)
[2016-03-18] MEDS: Stress 600 With Zinc 1 TAB PO SCH (09:31)
[2016-03-18] MEDS: Valsartan 80 MG TAB PO SCH (09:31)
[2016-03-18] MEDS: Potassium Chloride 10 MEQ TAB PO SCH ×2 (09:33→14:20)
[2016-03-18] MEDS: Furosemide 40 MG TAB PO SCH (09:34)
[2016-03-18] MEDS: glyBURIDE 5 MG TAB PO SCH (09:34)
[2016-03-18] MEDS: Carvedilol 25 MG TAB PO SCH (09:34)
--- NOTE | 2016-03-19 01:39 | HP ---
DATE OF ADMISSION: 02/27/2016 REASON FOR TRANSFER: Skilled physical therapy, occupational therapy and management of COPD and CHF. BRIEF SUMMARY OF HISTORY AND PHYSICAL: Patient is a 76-year-old white male who over the last month and a half has had frequent admissions to the hospital related to chronic obstructive pulmonary dise ase exacerbation and volume overload. The patient was most recently admitted at [facility] on 02/21/2016 for acute hypoxic respiratory failure, which improved as well as acute on chronic diastolic heart failure as well as paroxysmal atrial fibrillation and obstructive sleep a pnea with history of noncompliance. The patient has very slow improvement of his symptoms. He was continued to be extremely weak and debilitated, unable to ambulate due to shortness of breath and we akness and continued to have lower extremity edema. Thus, he was transferred from [facility] to [facility] for continued physical therapy, occupational t herapy, and management of diastolic heart failure and COPD. PAST MEDICAL HISTORY: 1. COPD, O2 dependent. 2. Chronic diastolic heart failure. 3. Paroxysmal atrial fibrillation. 4. Obstructive sleep apnea. 5. Morbid obesity. 6. Pulmonary hypertension. 7. History of rheumatoid arthritis. 8. History of psoriasis. MEDICATIONS: Brovana 15 mcg nebulized b.i.d., aspirin 81 mg daily, budesonide, carvedilol 25 mg p.o . b.i.d., fluoxetine 15 mg p.o. daily, Lasix 80 mg b.i.d, Plaquenil 20 mg daily, Toprol-XL 50 mg manisha ly, omeprazole 40 mg p.o. b.i.d., Xarelto 20 mg at bedtime, Carafate 1 gram q.a.c. and at bedtime, C oQ10 100 mg daily, valsartan 320 mg daily, glyburide 5 mg daily, hydralazine 25 mg p.o. b.i.d. and p .o. prednisone for which he has been on a taper, sulfasalazine 500 mg p.o. daily. For full history and physical, see recent admission note. REVIEW OF SYSTEMS: GENERAL: The patient reports of nasal congestion, continues to have cough, mainly dry, but occasion ally productive. The patient reports no sore throat, no chest pain, but has shortness of breath wit h any activity or speech. The patient reports some intermittent constipation which is currently sta ble. No abdominal pain, nausea reported other than what he reports as epigastric heartburn. The pa naila denies any diarrhea. Patient denies any obvious visual changes. The patient does report bein g hard of hearing chronically. The patient has chronic rashes related to psoriasis on his extremiti es. He reports chronic lower extremity edema 2+ at baseline. The patient reports occasional low ba ck pain, which is stable. The patient denies obvious depression. Patient denies any recent history of bleeding disorders. He does report generalized debilitation. PHYSICAL EXAMINATION: VITAL SIGNS: Blood pressure 148/68, respiratory rate 24, pulse was irregular mainly in the 80s. HEENT: Atraumatic, normocephalic. Extraocular movements are intact. Oropharynx, mucous membranes were dry. NECK: Supple, no masses were palpated. CHEST: Decreased breath sounds with rhonchi bilaterally occasionally. HEART: Regular rate and rhythm with occasional ectopic beats. ABDOMEN: Obese, soft, nontender, nondistended, no masses were palpated. EXTREMITIES: A 3+ edema up to the mid calf bilaterally with multiple psoriatic lesions on the espinosa and calf. ASSESSMENT AND PLAN: 1. Chronic obstructive pulmonary disease exacerbation. Patient will be weaned off prednisone, cont inue nebs, oxygen as needed and hopefully we will be able to discontinue his prednisone in the next week to 2 weeks. 2. Diastolic heart failure. The patient does have 3+ edema. We will try oral Lasix if not effecti ve, may have to go to IV Lasix for several days and monitor fluid status and sodium status. 3. Paroxysmal atrial fibrillation, presently controlled. Continue Xarelto and beta -juan ramon. 4. Sleep apnea. Patient has a CPAP machine, it is functional and he was encouraged to be compliant with it. 5. Generalized weakness. Physical Therapy and Occupational Therapy will be consulted. DISPOSITION: Plan is for the patient to be discharged to home once he is improved significantly.
--- NOTE | 2016-03-19 03:26 | DIS ---
DATE OF ADMISSION: 02/27/2016 DATE OF DISCHARGE: 03/18/2016 ADMISSION DIAGNOSES: 1. Generalized weakness, debilitation. 2. Chronic and acute diastolic heart failure. 3. Chronic obstructive pulmonary disease exacerbation. 4. Psoriatic arthritis with psoriasis. 5. Sleep apnea. DISCHARGE DIAGNOSES: 1. Diastolic heart failure, stable. 2. Chronic obstructive pulmonary disease exacerbation, improved. 3. Sleep apnea, compliant with CPAP. 4. Psoriatic arthritis. 5. Generalized debilitation, improved. BRIEF SUMMARY OF HOSPITAL COURSE: The patient is a 76-year-old white male who was admitted for diff use debilitation. Physical therapy and occupational therapy was initiated. Patient also had an exa cerbation of his diastolic heart failure requiring IV diuretics for several days. Once the patient diuresed of about 10 pounds, his BUN and creatinine began to creep up with either IV and/or p.o Lasi x with Zaroxolyn, his Lasix was decreased to 80 mg daily. The patient was given instructions on how to monitor his fluid status on an outpatient basis. The patient's strength overall improved during his hospitalization and he will continue with home health, physical therapy and occupational therap y. The patient will be discharged to home with home health. Appointment will be made with Dr. Perkins , cnc manager; Dr. Woodson, [facility] [employer] [facility]. The patient had previously b een seen at [facility] in [place], but he would like to switch to [facility]. Discussed with Dr. Mabry and/or Dr. Alegre in the area, which he may consider choosing in the near future. Instructed the patient to double his Lasix to 80 mg twice a day if he has more than 3 pound of weight gain in 24 hour. All questions were answered.
== END 2016-03-18 19:00 | disposition home health service (06) | DRG 190 ==
LOC: BURMED 16:50
PROVIDERS: ADMIT Family Medicine; ATTEND Family Medicine
DX: J44.1 Chronic obstructive pulmonary disease with (acute) exacerbation (principal); I50.33 Acute on chronic diastolic (congestive) heart failure; N17.9 Acute kidney failure, unspecified; L40.50 Arthropathic psoriasis, unspecified; E11.9 Type 2 diabetes mellitus without complications; I48.91 Unspecified atrial fibrillation; K21.9 Gastro-esophageal reflux disease without esophagitis; G47.33 Obstructive sleep apnea (adult) (pediatric); E66.9 Obesity, unspecified; I10 Essential (primary) hypertension
CPT/HCPCS: 36415; 36416; 71020; 80048; 80053; 83880; 85025; 94640; A4216; G8978-GP-CL; G8979-GP-CJ; G8987-GO-CK; G8988-GO-CI; J1940; J7506; J7512; J7620; J7626

== ENCOUNTER 2016-06-30 12:21 | Outpatient (CLI) | payer MEDICARE, OTHER ==
[2016-06-30 12:50] LABS: #Basophils 0.1 thou/uL (0.0-0.2); #Eosinphils 0.1 thou/uL (0.0-0.7); #Lymphocytes 2.5 thou/uL (1.20-3.40); #Monocytes 0.9 thou/uL (0.11-0.59); #Neutrophils 4.9 thou/uL (1.40-6.50); %Basophils 0.8 % (0.0-1.0); %Eosinophils 1.8 % (0.0-10.0); %Lymphocytes 29.6 % (21.0-51.0); %Monocytes 10.1 % (0.0-10.0); %Neutrophils 57.7 % (42.0-75.0); Hemoglobin 12.5 g/dL (14.0-18.0); Mean Corpuscular HGB CONC 32.4 g/dL (32.0-36.0); Mean Corpuscular Hemoglobin 28.7 pg (27.0-31.0); Mean Corpuscular Volume 88.7 fl (80.0-94.0); Mean Platelet Volume 6.7 fL (7.4-10.4); Platelet Count 231 thou/uL (130-400); RBC Distribution Width 13.7 % (11.5-14.5); Red Blood Cell (RBC) Count 4.36 mill/uL (4.70-6.10); White Blood Cell (WBC) Count 8.4 thou/uL (4.8-10.8)
[2016-06-30 13:06] LABS: ALT (SGPT) 29 U/L (8-55); AST (SGOT) 32 U/L (5-34); Albumin 4.2 g/dL (3.4-4.8); Alkaline Phosphatase 94 U/L (40-150); Anion Gap 15 mmol/L (10-20); BUN (Urea Nitrogen) 41 mg/dL (8.4-25.7); Bilirubin, Total 0.5 mg/dL (0.2-1.2); Calc. Creatinine Clearance 0 mL/min (70-130); Calcium 9.4 mg/dL (7.8-10.44); Carbon Dioxide 31 mmol/L (23-31); Chloride 101 mmol/L (98-107); Estimated GFR-MDRD 34; Globulin 2.8 g/dL (2.4-3.5); Glucose 195 mg/dL (83-110); Magnesium 2.5 mg/dL (1.6-2.6); Potassium 3.9 mmol/L (3.5-5.1); Sodium 143 mmol/L (136-145)
[2016-06-30 18:11] LABS: CRP (Inflammatory) 0.51 mg/dL (= or < 0.5)
== END 2016-06-30 12:22 | disposition home or self-care (01) ==
LOC: BURLAB 12:21
PROVIDERS: ATTEND Internal Medicine Rheumatology
DX: N18.3 Chronic kidney disease, stage 3 (moderate) (principal); L40.50 Arthropathic psoriasis, unspecified; Z79.899 Other long term (current) drug therapy
CPT/HCPCS: 36415; 80053; 83735; 85025; 85652; 86140

== ENCOUNTER 2016-08-13 13:28 | Outpatient (CLI) | payer MEDICARE, OTHER ==
[2016-08-13 13:53] LABS: #Basophils 0.1 thou/uL (0.0-0.2); #Eosinphils 0.9 thou/uL (0.0-0.7); #Lymphocytes 1.7 thou/uL (1.20-3.40); #Monocytes 0.8 thou/uL (0.11-0.59); #Neutrophils 5.4 thou/uL (1.40-6.50); %Basophils 1.3 % (0.0-1.0); %Eosinophils 10.2 % (0.0-10.0); %Lymphocytes 19.2 % (21.0-51.0); %Neutrophils 60.4 % (42.0-75.0); Hemoglobin 11.7 g/dL (14.0-18.0); Mean Corpuscular HGB CONC 32.6 g/dL (32.0-36.0); Mean Corpuscular Hemoglobin 28.5 pg (27.0-31.0); Mean Corpuscular Volume 87.5 fl (80.0-94.0); Mean Platelet Volume 6.6 fL (7.4-10.4); Platelet Count 205 thou/uL (130-400); RBC Distribution Width 13.9 % (11.5-14.5); Red Blood Cell (RBC) Count 4.12 mill/uL (4.70-6.10)
[2016-08-13 14:52] LABS: ALT (SGPT) 23 U/L (8-55); AST (SGOT) 23 U/L (5-34); Albumin 4.1 g/dL (3.4-4.8); Alkaline Phosphatase 88 U/L (40-150); Anion Gap 19 mmol/L (10-20); BUN (Urea Nitrogen) 74 mg/dL (8.4-25.7); Bilirubin, Total 0.4 mg/dL (0.2-1.2); Calc. Creatinine Clearance 0 mL/min (70-130); Calcium 9.2 mg/dL (7.8-10.44); Carbon Dioxide 35 mmol/L (23-31); Chloride 93 mmol/L (98-107); Estimated GFR-MDRD 23; Glucose 259 mg/dL (83-110); Potassium 4.1 mmol/L (3.5-5.1); Protein, Total 7.1 g/dL (5.8-8.1); Sodium 143 mmol/L (136-145)
[2016-08-13 17:38] LABS: CRP (Inflammatory) 1.08 mg/dL (= or < 0.5)
== END 2016-08-13 13:29 | disposition home or self-care (01) ==
LOC: BURLAB 13:28
PROVIDERS: ATTEND Family Medicine
DX: L40.50 Arthropathic psoriasis, unspecified (principal); Z79.899 Other long term (current) drug therapy
CPT/HCPCS: 36415; 80053; 85025; 85652; 86140

== ENCOUNTER 2016-09-04 11:32 | Outpatient (CLI) | payer MEDICARE, OTHER ==
[2016-09-04 12:26] LABS: #Basophils 0.1 thou/uL (0.0-0.2); #Eosinphils 0.4 thou/uL (0.0-0.7); #Lymphocytes 1.6 thou/uL (1.20-3.40); #Monocytes 0.6 thou/uL (0.11-0.59); #Neutrophils 4.9 thou/uL (1.40-6.50); %Basophils 1.4 % (0.0-1.0); %Eosinophils 5.7 % (0.0-10.0); %Lymphocytes 21.3 % (21.0-51.0); %Monocytes 7.5 % (0.0-10.0); %Neutrophils 64.1 % (42.0-75.0); Mean Corpuscular HGB CONC 32.3 g/dL (32.0-36.0); Mean Corpuscular Hemoglobin 28.1 pg (27.0-31.0); Mean Platelet Volume 6.2 fL (7.4-10.4); Platelet Count 226 thou/uL (130-400); RBC Distribution Width 13.3 % (11.5-14.5); Red Blood Cell (RBC) Count 3.92 mill/uL (4.70-6.10); White Blood Cell (WBC) Count 7.6 thou/uL (4.8-10.8)
[2016-09-04 12:31] LABS: ALT (SGPT) 24 U/L (8-55); AST (SGOT) 20 U/L (5-34); Albumin 3.8 g/dL (3.4-4.8); Alkaline Phosphatase 75 U/L (40-150); Anion Gap 18 mmol/L (10-20); BUN (Urea Nitrogen) 44 mg/dL (8.4-25.7); Bilirubin, Total 0.4 mg/dL (0.2-1.2); Calc. Creatinine Clearance 0 mL/min (70-130); Calcium 9.2 mg/dL (7.8-10.44); Carbon Dioxide 30 mmol/L (23-31); Chloride 99 mmol/L (98-107); Estimated GFR-MDRD 32; Glucose 161 mg/dL (83-110); Magnesium 2.3 mg/dL (1.6-2.6); Potassium 3.8 mmol/L (3.5-5.1); Protein, Total 6.8 g/dL (5.8-8.1); Sodium 143 mmol/L (136-145)
== END 2016-09-04 11:33 | disposition home or self-care (01) ==
LOC: BURLAB 11:32
PROVIDERS: ATTEND Internal Medicine
DX: I25.118 Atherosclerotic heart disease of native coronary artery with other forms of angina pectoris (principal); I50.32 Chronic diastolic (congestive) heart failure; I10 Essential (primary) hypertension
CPT/HCPCS: 36415; 80053; 83735; 85025

== ENCOUNTER 2016-09-16 12:02 | Outpatient (CLI) | payer MEDICARE, OTHER ==
[2016-09-16 12:40] LABS: #Basophils 0.1 thou/uL (0.0-0.2); #Eosinphils 0.3 thou/uL (0.0-0.7); #Lymphocytes 2.1 thou/uL (1.20-3.40); #Monocytes 0.8 thou/uL (0.11-0.59); #Neutrophils 5.6 thou/uL (1.40-6.50); %Lymphocytes 23.7 % (21.0-51.0); %Monocytes 9.1 % (0.0-10.0); %Neutrophils 63.2 % (42.0-75.0); Hemoglobin 11.1 g/dL (14.0-18.0); Mean Corpuscular HGB CONC 33.8 g/dL (32.0-36.0); Mean Corpuscular Hemoglobin 29.3 pg (27.0-31.0); Mean Corpuscular Volume 86.7 fl (80.0-94.0); Platelet Count 219 thou/uL (130-400); RBC Distribution Width 13.7 % (11.5-14.5); Red Blood Cell (RBC) Count 3.78 mill/uL (4.70-6.10); White Blood Cell (WBC) Count 8.8 thou/uL (4.8-10.8)
[2016-09-16 13:40] LABS: Anion Gap 17 mmol/L (10-20); BUN (Urea Nitrogen) 73 mg/dL (8.4-25.7); Calc. Creatinine Clearance 0 mL/min (70-130); Calcium 9.9 mg/dL (7.8-10.44); Carbon Dioxide 32 mmol/L (23-31); Chloride 95 mmol/L (98-107); Estimated GFR-MDRD 23; Glucose 155 mg/dL (83-110); Potassium 3.2 mmol/L (3.5-5.1); Sodium 141 mmol/L (136-145)
== END 2016-09-16 12:03 | disposition home or self-care (01) ==
LOC: BURLAB 12:02
PROVIDERS: ATTEND Internal Medicine
DX: I11.0 Hypertensive heart disease with heart failure (principal); I50.32 Chronic diastolic (congestive) heart failure; I48.0 Paroxysmal atrial fibrillation
CPT/HCPCS: 36415; 80048; 85025

== ENCOUNTER 2017-03-23 16:31 | Inpatient (IN) | payer MEDICARE ==
[2017-03-23] MEDS ORDERED: PROVENTIL INHALER 6.7 G (200 INHALATIONS) INH PRN (19:50)
[2017-03-23] MEDS ORDERED: diphenhydrAMINE 25 MG CAP PO PRN (19:52)
[2017-03-23] MEDS ORDERED: Hydrocortisone 1% Cream 30 GM TUBE TOP PRN (23:00)
[2017-03-23] MEDS: cloNIDine 0.1 MG TAB PO SCH (23:08)
[2017-03-23] MEDS: hydrALAZINE 25 MG TAB PO SCH (23:08)
[2017-03-24] MEDS ORDERED: Dextrose 5% in Water 1,000 ML IV PRN (00:01)
[2017-03-24] MEDS ORDERED: Dextrose 50% Abboject 50 ML SYRINGE IVP PRN (00:01)
[2017-03-24] MEDS: Mometasone/Formoterol 60 PUFF AER INH SCH ×2 (06:39→18:50)
[2017-03-24] MEDS ORDERED: CLOBETASOL PROPIONATE TOP PRN (09:00)
[2017-03-24] MEDS ORDERED: Metolazone 5 MG TAB PO PRN (09:00)
[2017-03-24] MEDS ORDERED: ERGOCALCIFEROL 2000 UNIT PO SCH (09:00)
[2017-03-24] MEDS ORDERED: Non-Formulary Item 1 EACH (Fluticasone/Vilanterol [Breo Ellipta] 1 INH) IH SCH (09:00)
[2017-03-24] MEDS: Polyethylene Glycol 3350 17 GM Packet PO SCH (09:18)
[2017-03-24] MEDS: Potassium Chloride 10 MEQ TAB PO SCH ×2 (09:19→14:35)
[2017-03-24] MEDS: Torsemide 20 MG TAB PO SCH ×2 (09:21→14:34)
[2017-03-24] MEDS: glipiZIDE 5 MG TAB PO SCH (09:22)
[2017-03-24] MEDS: glyBURIDE 5 MG TAB PO SCH (09:22)
[2017-03-24] MEDS: cloNIDine 0.1 MG TAB PO SCH ×2 (09:23→21:23)
[2017-03-24] MEDS: FLUoxetine HCl 10 MG CAP PO SCH (09:23)
[2017-03-24] MEDS: Amiodarone 200 MG TAB PO SCH (09:24)
[2017-03-24] MEDS: Multivit, Therapeutic 1 TAB PO SCH (09:24)
[2017-03-24] MEDS: hydrALAZINE 25 MG TAB PO SCH ×3 (09:24→21:22)
[2017-03-24] MEDS: predniSONE 20 MG TAB PO SCH (09:24)
[2017-03-24] MEDS: Apremilast [Otezla] 30 MG PO SCH ×2 (09:37→21:27)
[2017-03-24] MEDS: Famotidine 20 MG TAB PO SCH ×2 (09:44→21:23)
[2017-03-24] MEDS: Metolazone 5 MG TAB PO SCH (09:44)
[2017-03-24] MEDS: Insulin Regular 300 UNITS/3 ML VIAL SC PRN (19:04)
[2017-03-24] MEDS ORDERED: Rosuvastatin 10 MG TAB PO SCH (21:00)
[2017-03-24] MEDS ORDERED: Albuterol Sulfate 2.5 mg/3 ml Neb ONE (21:17)
[2017-03-24] MEDS: Rosuvastatin 10 MG TAB PO SCH (21:22)
[2017-03-24] MEDS: Enoxaparin Sodium 40 MG/0.4 ML SYRINGE SC SCH (21:24)
[2017-03-25] MEDS: Mometasone/Formoterol 60 PUFF AER INH SCH ×2 (06:00→18:42)
[2017-03-25 06:45] LABS: ALT (SGPT) 98 U/L (8-55); AST (SGOT) 44 U/L (5-34); Albumin 3.9 g/dL (3.4-4.8); Alkaline Phosphatase 68 U/L (40-150); Anion Gap 21 mmol/L (10-20); BUN (Urea Nitrogen) 45 mg/dL (8.4-25.7); Bilirubin, Total 0.7 mg/dL (0.2-1.2); Calc. Creatinine Clearance 62 mL/min (70-130); Calcium 9.8 mg/dL (7.8-10.44); Carbon Dioxide 34 mmol/L (23-31); Estimated GFR-MDRD 30; Glucose 93 mg/dL (83-110); Protein, Total 6.9 g/dL (5.8-8.1)
[2017-03-25 06:49] LABS: Chloride 90 mmol/L (98-107); Potassium 3.1 mmol/L (3.5-5.1); Sodium 143 mmol/L (136-145)
[2017-03-25] MEDS ORDERED: Potassium Chloride 20 MEQ TAB PO SCH (07:45)
[2017-03-25 07:49] LABS: Hemoglobin 11.8 g/dL (14.0-18.0); Mean Corpuscular HGB CONC 33.1 g/dL (32.0-36.0); Mean Corpuscular Hemoglobin 26.5 pg (27.0-31.0); Mean Platelet Volume 7.5 fL (7.4-10.4); Platelet Count 233 thou/uL (130-400); RBC Distribution Width 14.8 % (11.5-14.5); Red Blood Cell (RBC) Count 4.47 mill/uL (4.70-6.10); White Blood Cell (WBC) Count 17.4 thou/uL (4.8-10.8)
[2017-03-25 08:21] LABS: Band 2 % (5-11); Eosinophils 1 % (0-10); Lymphocytes 25 % (21-51); MDiff Complete? YES; Monocytes 6 % (0-10); Neutrophil 56 % (42-75); PLT Morphology Comment Appears Adequate; RBC Morphology Normal; Reactive Lymphocytes 10 % (0-10)
[2017-03-25] MEDS: predniSONE 20 MG TAB PO SCH (08:51)
[2017-03-25] MEDS: Amiodarone 200 MG TAB PO SCH (08:52)
[2017-03-25] MEDS: glipiZIDE 5 MG TAB PO SCH (08:52)
[2017-03-25] MEDS: Torsemide 20 MG TAB PO SCH ×2 (08:52→14:39)
[2017-03-25] MEDS: Multivit, Therapeutic 1 TAB PO SCH (08:52)
[2017-03-25] MEDS: Famotidine 20 MG TAB PO SCH ×2 (08:52→20:50)
[2017-03-25] MEDS: Metolazone 5 MG TAB PO SCH (08:53)
[2017-03-25] MEDS: FLUoxetine HCl 10 MG CAP PO SCH (08:53)
[2017-03-25] MEDS: cloNIDine 0.1 MG TAB PO SCH ×2 (08:53→20:50)
[2017-03-25] MEDS: glyBURIDE 5 MG TAB PO SCH (08:54)
[2017-03-25] MEDS: hydrALAZINE 25 MG TAB PO SCH ×3 (08:54→20:50)
[2017-03-25] MEDS: Potassium Chloride 10 MEQ TAB PO SCH ×2 (08:54→14:40)
[2017-03-25] MEDS: Polyethylene Glycol 3350 17 GM Packet PO SCH (08:56)
[2017-03-25] MEDS: Apremilast [Otezla] 30 MG PO SCH ×2 (08:56→22:32)
[2017-03-25] MEDS ORDERED: FLU VACC QS2017-18 36 mo. & older 0.5 ML SYRINGE IM ONE (09:00)
[2017-03-25] MEDS: Insulin Regular 300 UNITS/3 ML VIAL SC PRN ×3 (13:25→20:59)
[2017-03-25] MEDS: Rosuvastatin 10 MG TAB PO SCH (20:50)
[2017-03-25] MEDS: Enoxaparin Sodium 40 MG/0.4 ML SYRINGE SC SCH (20:51)
[2017-03-26 06:13] LABS: ALT (SGPT) 91 U/L (8-55); AST (SGOT) 41 U/L (5-34); Albumin 3.8 g/dL (3.4-4.8); Alkaline Phosphatase 67 U/L (40-150); Anion Gap 19 mmol/L (10-20); BUN (Urea Nitrogen) 52 mg/dL (8.4-25.7); Bilirubin, Total 0.8 mg/dL (0.2-1.2); Calc. Creatinine Clearance 56 mL/min (70-130); Carbon Dioxide 37 mmol/L (23-31); Chloride 87 mmol/L (98-107); Estimated GFR-MDRD 27; Globulin 2.8 g/dL (2.4-3.5); Glucose 143 mg/dL (83-110); Protein, Total 6.6 g/dL (5.8-8.1); Sodium 140 mmol/L (136-145)
[2017-03-26] MEDS: Mometasone/Formoterol 60 PUFF AER INH SCH ×2 (06:17→17:46)
[2017-03-26 07:09] LABS: #Basophils 0.1 thou/uL (0.0-0.2); #Lymphocytes 5.2 thou/uL (1.20-3.40); #Neutrophils 9.2 thou/uL (1.40-6.50); %Basophils 0.4 % (0.0-1.0); %Eosinophils 0.3 % (0.0-10.0); %Lymphocytes 33.7 % (21.0-51.0); %Monocytes 6.7 % (0.0-10.0); Hemoglobin 11.9 g/dL (14.0-18.0); Mean Corpuscular HGB CONC 34.6 g/dL (32.0-36.0); Mean Corpuscular Hemoglobin 27.9 pg (27.0-31.0); Mean Corpuscular Volume 80.7 fl (80.0-94.0); Mean Platelet Volume 7.2 fL (7.4-10.4); Platelet Count 234 thou/uL (130-400); RBC Distribution Width 14.5 % (11.5-14.5); Red Blood Cell (RBC) Count 4.26 mill/uL (4.70-6.10); White Blood Cell (WBC) Count 15.5 thou/uL (4.8-10.8)
[2017-03-26 07:14] LABS: Potassium 2.8 mmol/L (3.5-5.1)
[2017-03-26] MEDS ORDERED: Potassium Chloride 20 MEQ TAB PO SCH (07:30)
[2017-03-26] MEDS: predniSONE 20 MG TAB PO SCH (08:09)
[2017-03-26] MEDS: Metolazone 5 MG TAB PO SCH (08:09)
[2017-03-26] MEDS: Torsemide 20 MG TAB PO SCH ×2 (08:27→13:45)
[2017-03-26] MEDS: FLUoxetine HCl 10 MG CAP PO SCH (08:27)
[2017-03-26] MEDS: Potassium Chloride 10 MEQ TAB PO SCH ×2 (08:28→13:49)
[2017-03-26] MEDS: Amiodarone 200 MG TAB PO SCH (08:29)
[2017-03-26] MEDS: Famotidine 20 MG TAB PO SCH ×2 (08:29→21:54)
[2017-03-26] MEDS: glipiZIDE 5 MG TAB PO SCH (08:29)
[2017-03-26] MEDS: cloNIDine 0.1 MG TAB PO SCH ×2 (08:29→21:54)
[2017-03-26] MEDS: glyBURIDE 5 MG TAB PO SCH (08:30)
[2017-03-26] MEDS: Multivit, Therapeutic 1 TAB PO SCH (08:30)
[2017-03-26] MEDS: hydrALAZINE 25 MG TAB PO SCH ×3 (08:30→21:55)
[2017-03-26] MEDS: Apremilast [Otezla] 30 MG PO SCH ×2 (08:30→21:56)
[2017-03-26] MEDS: Polyethylene Glycol 3350 17 GM Packet PO SCH (08:31)
[2017-03-26] MEDS: Insulin Regular 300 UNITS/3 ML VIAL SC PRN (13:42)
[2017-03-26] MEDS: Rosuvastatin 10 MG TAB PO SCH (21:54)
[2017-03-26] MEDS: Enoxaparin Sodium 40 MG/0.4 ML SYRINGE SC SCH (21:55)
[2017-03-27 06:01] LABS: #Basophils 0.1 thou/uL (0.0-0.2); #Eosinphils 0.1 thou/uL (0.0-0.7); #Monocytes 1.1 thou/uL (0.11-0.59); %Basophils 0.4 % (0.0-1.0); %Eosinophils 0.4 % (0.0-10.0); %Lymphocytes 35.2 % (21.0-51.0); %Monocytes 7.9 % (0.0-10.0); %Neutrophils 56.2 % (42.0-75.0); Hemoglobin 11.6 g/dL (14.0-18.0); Mean Corpuscular HGB CONC 33.2 g/dL (32.0-36.0); Mean Corpuscular Hemoglobin 26.8 pg (27.0-31.0); Mean Corpuscular Volume 80.8 fl (80.0-94.0); Mean Platelet Volume 6.7 fL (7.4-10.4); Platelet Count 222 thou/uL (130-400); Red Blood Cell (RBC) Count 4.31 mill/uL (4.70-6.10); White Blood Cell (WBC) Count 14.2 thou/uL (4.8-10.8)
[2017-03-27 06:14] LABS: ALT (SGPT) 80 U/L (8-55); AST (SGOT) 32 U/L (5-34); Albumin 3.7 g/dL (3.4-4.8); Alkaline Phosphatase 67 U/L (40-150); Anion Gap 24 mmol/L (10-20); BUN (Urea Nitrogen) 61 mg/dL (8.4-25.7); Bilirubin, Total 0.8 mg/dL (0.2-1.2); Calc. Creatinine Clearance 59 mL/min (70-130); Calcium 10.3 mg/dL (7.8-10.44); Carbon Dioxide 34 mmol/L (23-31); Estimated GFR-MDRD 24; Globulin 2.8 g/dL (2.4-3.5); Glucose 140 mg/dL (83-110); Protein, Total 6.5 g/dL (5.8-8.1)
[2017-03-27 06:18] LABS: Chloride 85 mmol/L (98-107); Sodium 141 mmol/L (136-145)
[2017-03-27 06:23] LABS: Potassium 2.4 mmol/L (3.5-5.1)
[2017-03-27] MEDS: Mometasone/Formoterol 60 PUFF AER INH SCH ×2 (06:28→18:29)
[2017-03-27] MEDS: Polyethylene Glycol 3350 17 GM Packet PO SCH (08:27)
[2017-03-27] MEDS: Multivit, Therapeutic 1 TAB PO SCH (08:28)
[2017-03-27] MEDS: Famotidine 20 MG TAB PO SCH ×2 (08:29→20:47)
[2017-03-27] MEDS: glyBURIDE 5 MG TAB PO SCH (08:29)
[2017-03-27] MEDS: Torsemide 20 MG TAB PO SCH ×2 (08:32→14:40)
[2017-03-27] MEDS: FLUoxetine HCl 10 MG CAP PO SCH (08:32)
[2017-03-27] MEDS: cloNIDine 0.1 MG TAB PO SCH ×2 (08:34→20:47)
[2017-03-27] MEDS: hydrALAZINE 25 MG TAB PO SCH ×3 (08:34→20:48)
[2017-03-27] MEDS: predniSONE 20 MG TAB PO SCH (08:35)
[2017-03-27] MEDS: Amiodarone 200 MG TAB PO SCH (08:37)
[2017-03-27] MEDS: glipiZIDE 5 MG TAB PO SCH (08:42)
[2017-03-27] MEDS ORDERED: Potassium Chloride 20 MEQ TAB PO SCH ×2 (10:00→21:00)
[2017-03-27] MEDS: Apremilast [Otezla] 30 MG PO SCH ×2 (10:03→21:17)
[2017-03-27] MEDS: Potassium Chloride 10 MEQ TAB PO SCH ×2 (10:14→14:42)
[2017-03-27] MEDS: Insulin Regular 300 UNITS/3 ML VIAL SC PRN ×2 (12:49→17:40)
[2017-03-27] MEDS: Rosuvastatin 10 MG TAB PO SCH (20:46)
[2017-03-27] MEDS: Enoxaparin Sodium 40 MG/0.4 ML SYRINGE SC SCH (20:48)
[2017-03-28 06:09] LABS: #Basophils 0.1 thou/uL (0.0-0.2); #Eosinphils 0.1 thou/uL (0.0-0.7); #Lymphocytes 5.2 thou/uL (1.20-3.40); #Monocytes 1.2 thou/uL (0.11-0.59); #Neutrophils 8.5 thou/uL (1.40-6.50); %Basophils 0.4 % (0.0-1.0); %Eosinophils 0.5 % (0.0-10.0); %Lymphocytes 34.8 % (21.0-51.0); %Monocytes 7.6 % (0.0-10.0); %Neutrophils 56.6 % (42.0-75.0); Hemoglobin 12.2 g/dL (14.0-18.0); Mean Corpuscular HGB CONC 34.4 g/dL (32.0-36.0); Mean Corpuscular Hemoglobin 27.7 pg (27.0-31.0); Mean Corpuscular Volume 80.8 fl (80.0-94.0); Platelet Count 225 thou/uL (130-400); RBC Distribution Width 15.2 % (11.5-14.5)
[2017-03-28 06:15] LABS: ALT (SGPT) 75 U/L (8-55); AST (SGOT) 31 U/L (5-34); Albumin 3.9 g/dL (3.4-4.8); Alkaline Phosphatase 67 U/L (40-150); Anion Gap 20 mmol/L (10-20); BUN (Urea Nitrogen) 66 mg/dL (8.4-25.7); Bilirubin, Total 0.7 mg/dL (0.2-1.2); Calc. Creatinine Clearance 47 mL/min (70-130); Calcium 10.8 mg/dL (7.8-10.44); Carbon Dioxide 37 mmol/L (23-31); Chloride 87 mmol/L (98-107); Estimated GFR-MDRD 23; Glucose 140 mg/dL (83-110); Potassium 3.2 mmol/L (3.5-5.1); Protein, Total 6.9 g/dL (5.8-8.1); Sodium 141 mmol/L (136-145)
[2017-03-28] MEDS: glipiZIDE 5 MG TAB PO SCH (09:34)
[2017-03-28] MEDS: cloNIDine 0.1 MG TAB PO SCH ×2 (09:35→21:35)
[2017-03-28] MEDS: Multivit, Therapeutic 1 TAB PO SCH (09:36)
[2017-03-28] MEDS: Amiodarone 200 MG TAB PO SCH (09:36)
[2017-03-28] MEDS: Torsemide 20 MG TAB PO SCH ×2 (09:38→14:27)
[2017-03-28] MEDS: hydrALAZINE 25 MG TAB PO SCH ×3 (09:39→21:37)
[2017-03-28] MEDS: predniSONE 20 MG TAB PO SCH (09:40)
[2017-03-28] MEDS: FLUoxetine HCl 10 MG CAP PO SCH (09:40)
[2017-03-28] MEDS: Potassium Chloride 20 MEQ TAB PO SCH ×3 (09:41→17:28)
[2017-03-28] MEDS: Famotidine 20 MG TAB PO SCH ×2 (09:42→21:38)
[2017-03-28] MEDS: glyBURIDE 5 MG TAB PO SCH (09:43)
[2017-03-28] MEDS: Apremilast [Otezla] 30 MG PO SCH ×2 (09:47→21:39)
[2017-03-28] MEDS: Polyethylene Glycol 3350 17 GM Packet PO SCH (09:47)
[2017-03-28] MEDS: Mometasone/Formoterol 60 PUFF AER INH SCH ×2 (09:48→19:04)
[2017-03-28] MEDS: Insulin Regular 300 UNITS/3 ML VIAL SC PRN ×3 (12:12→22:10)
[2017-03-28] MEDS: Enoxaparin Sodium 40 MG/0.4 ML SYRINGE SC SCH (21:37)
[2017-03-28] MEDS: Rosuvastatin 10 MG TAB PO SCH (21:37)
[2017-03-29] MEDS: Mometasone/Formoterol 60 PUFF AER INH SCH ×2 (05:56→18:33)
[2017-03-29] MEDS: FLUoxetine HCl 10 MG CAP PO SCH (10:09)
[2017-03-29] MEDS: Potassium Chloride 20 MEQ TAB PO SCH ×3 (10:10→17:50)
[2017-03-29] MEDS: Famotidine 20 MG TAB PO SCH ×2 (10:10→21:24)
[2017-03-29] MEDS: glyBURIDE 5 MG TAB PO SCH (10:11)
[2017-03-29] MEDS: predniSONE 20 MG TAB PO SCH (10:11)
[2017-03-29] MEDS: hydrALAZINE 25 MG TAB PO SCH ×3 (10:11→21:24)
[2017-03-29] MEDS: glipiZIDE 5 MG TAB PO SCH (10:11)
[2017-03-29] MEDS: cloNIDine 0.1 MG TAB PO SCH ×2 (10:12→21:25)
[2017-03-29] MEDS: Multivit, Therapeutic 1 TAB PO SCH (10:12)
[2017-03-29] MEDS: Amiodarone 200 MG TAB PO SCH (10:12)
[2017-03-29] MEDS: Metolazone 5 MG TAB PO SCH (10:12)
[2017-03-29] MEDS: Polyethylene Glycol 3350 17 GM Packet PO SCH (10:15)
[2017-03-29] MEDS: Apremilast [Otezla] 30 MG PO SCH ×2 (10:15→21:47)
[2017-03-29] MEDS: Torsemide 20 MG TAB PO SCH ×2 (10:25→13:56)
[2017-03-29] MEDS: Insulin Regular 300 UNITS/3 ML VIAL SC PRN ×2 (17:53→21:35)
[2017-03-29] MEDS: Rosuvastatin 10 MG TAB PO SCH (21:24)
[2017-03-29] MEDS: Enoxaparin Sodium 40 MG/0.4 ML SYRINGE SC SCH (21:25)
[2017-03-30 05:44] LABS: ALT (SGPT) 60 U/L (8-55); AST (SGOT) 28 U/L (5-34); Albumin 3.8 g/dL (3.4-4.8); Alkaline Phosphatase 71 U/L (40-150); Anion Gap 20 mmol/L (10-20); BUN (Urea Nitrogen) 72 mg/dL (8.4-25.7); Bilirubin, Total 0.8 mg/dL (0.2-1.2); Calc. Creatinine Clearance 45 mL/min (70-130); Calcium 10.5 mg/dL (7.8-10.44); Carbon Dioxide 36 mmol/L (23-31); Chloride 87 mmol/L (98-107); Estimated GFR-MDRD 22; Globulin 2.9 g/dL (2.4-3.5); Glucose 132 mg/dL (83-110); Protein, Total 6.7 g/dL (5.8-8.1); Sodium 140 mmol/L (136-145)
[2017-03-30] MEDS: Mometasone/Formoterol 60 PUFF AER INH SCH ×2 (05:50→18:10)
[2017-03-30 06:40] LABS: Potassium 2.9 mmol/L (3.5-5.1)
[2017-03-30 06:44] LABS: #Basophils 0.1 thou/uL (0.0-0.2); #Eosinphils 0.1 thou/uL (0.0-0.7); #Lymphocytes 4.3 thou/uL (1.20-3.40); #Monocytes 1.2 thou/uL (0.11-0.59); #Neutrophils 8.1 thou/uL (1.40-6.50); %Basophils 0.6 % (0.0-1.0); %Eosinophils 0.5 % (0.0-10.0); %Lymphocytes 31.2 % (21.0-51.0); %Monocytes 8.7 % (0.0-10.0); Hemoglobin 12.1 g/dL (14.0-18.0); Mean Corpuscular Hemoglobin 25.9 pg (27.0-31.0); Mean Corpuscular Volume 80.8 fl (80.0-94.0); Mean Platelet Volume 6.8 fL (7.4-10.4); Platelet Count 204 thou/uL (130-400); RBC Distribution Width 15.3 % (11.5-14.5); Red Blood Cell (RBC) Count 4.67 mill/uL (4.70-6.10); White Blood Cell (WBC) Count 13.7 thou/uL (4.8-10.8)
[2017-03-30] MEDS ORDERED: Potassium Chloride 20 MEQ TAB PO SCH (07:00)
[2017-03-30] MEDS: Potassium Chloride 20 MEQ TAB PO SCH ×3 (08:15→17:20)
[2017-03-30] MEDS: predniSONE 20 MG TAB PO SCH (09:19)
[2017-03-30] MEDS: Famotidine 20 MG TAB PO SCH ×2 (09:20→21:13)
[2017-03-30] MEDS: Torsemide 20 MG TAB PO SCH ×2 (09:20→14:10)
[2017-03-30] MEDS: glyBURIDE 5 MG TAB PO SCH (09:20)
[2017-03-30] MEDS: glipiZIDE 5 MG TAB PO SCH (09:20)
[2017-03-30] MEDS: FLUoxetine HCl 10 MG CAP PO SCH (09:20)
[2017-03-30] MEDS: Multivit, Therapeutic 1 TAB PO SCH (09:21)
[2017-03-30] MEDS: hydrALAZINE 25 MG TAB PO SCH ×3 (09:22→21:14)
[2017-03-30] MEDS: Amiodarone 200 MG TAB PO SCH (09:22)
[2017-03-30] MEDS: cloNIDine 0.1 MG TAB PO SCH ×2 (09:24→21:14)
[2017-03-30] MEDS: Polyethylene Glycol 3350 17 GM Packet PO SCH (09:25)
[2017-03-30] MEDS: Apremilast [Otezla] 30 MG PO SCH ×2 (09:32→22:12)
[2017-03-30] MEDS: Insulin Regular 300 UNITS/3 ML VIAL SC PRN ×3 (13:07→21:10)
[2017-03-30] MEDS: Enoxaparin Sodium 40 MG/0.4 ML SYRINGE SC SCH (21:12)
[2017-03-30] MEDS: Rosuvastatin 10 MG TAB PO SCH (21:13)
[2017-03-31 05:11] VITALS: BMI 202.6
[2017-03-31 05:52] LABS: #Basophils 0.1 thou/uL (0.0-0.2); #Eosinphils 0.1 thou/uL (0.0-0.7); #Monocytes 1.1 thou/uL (0.11-0.59); #Neutrophils 7.5 thou/uL (1.40-6.50); %Basophils 0.5 % (0.0-1.0); %Eosinophils 0.6 % (0.0-10.0); %Lymphocytes 31.3 % (21.0-51.0); %Monocytes 8.5 % (0.0-10.0); %Neutrophils 59.1 % (42.0-75.0); Hemoglobin 11.7 g/dL (14.0-18.0); Mean Corpuscular HGB CONC 34.4 g/dL (32.0-36.0); Mean Corpuscular Hemoglobin 27.9 pg (27.0-31.0); Mean Corpuscular Volume 81.2 fl (80.0-94.0); Mean Platelet Volume 6.5 fL (7.4-10.4); Platelet Count 175 thou/uL (130-400); RBC Distribution Width 15.1 % (11.5-14.5); Red Blood Cell (RBC) Count 4.21 mill/uL (4.70-6.10); White Blood Cell (WBC) Count 12.6 thou/uL (4.8-10.8)
[2017-03-31 06:04] LABS: Calcium 9.7 mg/dL (7.8-10.44); Chloride 91 mmol/L (98-107); Potassium 3.3 mmol/L (3.5-5.1); Sodium 140 mmol/L (136-145)
[2017-03-31] MEDS: Mometasone/Formoterol 60 PUFF AER INH SCH ×2 (06:29→18:43)
[2017-03-31 07:17] LABS: ALT (SGPT) 57 U/L (8-55); AST (SGOT) 28 U/L (5-34); Albumin 3.7 g/dL (3.4-4.8); Alkaline Phosphatase 69 U/L (40-150); BUN (Urea Nitrogen) 75 mg/dL (8.4-25.7); Bilirubin, Total 0.7 mg/dL (0.2-1.2); Calc. Creatinine Clearance 18 mL/min (70-130); Carbon Dioxide 32 mmol/L (23-31); Estimated GFR-MDRD 19; Globulin 2.5 g/dL (2.4-3.5); Glucose 117 mg/dL (83-110); Protein, Total 6.2 g/dL (5.8-8.1)
[2017-03-31 07:53] LABS: Anion Gap 20 mmol/L (10-20)
[2017-03-31] MEDS: Famotidine 20 MG TAB PO SCH ×2 (09:14→21:06)
[2017-03-31] MEDS: FLUoxetine HCl 10 MG CAP PO SCH (09:16)
[2017-03-31] MEDS: Multivit, Therapeutic 1 TAB PO SCH (09:16)
[2017-03-31] MEDS: glyBURIDE 5 MG TAB PO SCH (09:16)
[2017-03-31] MEDS: Metolazone 5 MG TAB PO SCH (09:16)
[2017-03-31] MEDS: predniSONE 20 MG TAB PO SCH (09:17)
[2017-03-31] MEDS: Torsemide 20 MG TAB PO SCH ×2 (09:17→14:51)
[2017-03-31] MEDS: Potassium Chloride 20 MEQ TAB PO SCH ×3 (09:18→17:09)
[2017-03-31] MEDS: Amiodarone 200 MG TAB PO SCH (09:18)
[2017-03-31] MEDS: glipiZIDE 5 MG TAB PO SCH (09:22)
[2017-03-31] MEDS: hydrALAZINE 25 MG TAB PO SCH ×3 (09:25→21:06)
[2017-03-31] MEDS: cloNIDine 0.1 MG TAB PO SCH ×2 (09:25→21:13)
[2017-03-31] MEDS: Polyethylene Glycol 3350 17 GM Packet PO SCH (09:27)
[2017-03-31] MEDS: Apremilast [Otezla] 30 MG PO SCH ×2 (09:27→21:00)
[2017-03-31] MEDS: Insulin Regular 300 UNITS/3 ML VIAL SC PRN ×2 (12:20→17:21)
[2017-03-31] MEDS: Rosuvastatin 10 MG TAB PO SCH (21:06)
[2017-03-31] MEDS: Enoxaparin Sodium 40 MG/0.4 ML SYRINGE SC SCH (21:13)
[2017-04-01 05:25] LABS: #Basophils 0.2 thou/uL (0.0-0.2); #Eosinphils 0.1 thou/uL (0.0-0.7); #Lymphocytes 3.8 thou/uL (1.20-3.40); #Monocytes 1.2 thou/uL (0.11-0.59); #Neutrophils 7.6 thou/uL (1.40-6.50); %Basophils 1.3 % (0.0-1.0); %Eosinophils 0.7 % (0.0-10.0); %Lymphocytes 29.5 % (21.0-51.0); %Monocytes 9.3 % (0.0-10.0); %Neutrophils 59.3 % (42.0-75.0); Hemoglobin 11.6 g/dL (14.0-18.0); Mean Corpuscular HGB CONC 33.5 g/dL (32.0-36.0); Mean Corpuscular Volume 80.7 fl (80.0-94.0); Mean Platelet Volume 6.7 fL (7.4-10.4); Platelet Count 178 thou/uL (130-400); RBC Distribution Width 15.1 % (11.5-14.5); Red Blood Cell (RBC) Count 4.31 mill/uL (4.70-6.10); White Blood Cell (WBC) Count 12.9 thou/uL (4.8-10.8)
[2017-04-01 05:43] LABS: ALT (SGPT) 53 U/L (8-55); AST (SGOT) 26 U/L (5-34); Albumin 3.8 g/dL (3.4-4.8); Alkaline Phosphatase 70 U/L (40-150); Anion Gap 19 mmol/L (10-20); BUN (Urea Nitrogen) 71 mg/dL (8.4-25.7); Bilirubin, Total 0.6 mg/dL (0.2-1.2); Calc. Creatinine Clearance 22 mL/min (70-130); Calcium 9.9 mg/dL (7.8-10.44); Carbon Dioxide 35 mmol/L (23-31); Chloride 90 mmol/L (98-107); Estimated GFR-MDRD 23; Globulin 2.7 g/dL (2.4-3.5); Glucose 119 mg/dL (83-110); Magnesium 2.3 mg/dL (1.6-2.6); Protein, Total 6.5 g/dL (5.8-8.1); Sodium 141 mmol/L (136-145)
[2017-04-01 05:53] LABS: Potassium 2.8 mmol/L (3.5-5.1)
[2017-04-01] MEDS: Mometasone/Formoterol 60 PUFF AER INH SCH ×2 (06:15→18:35)
[2017-04-01] MEDS ORDERED: Potassium Chloride 20 MEQ TAB PO SCH (06:15)
[2017-04-01] MEDS: FLUoxetine HCl 10 MG CAP PO SCH (09:07)
[2017-04-01] MEDS: Potassium Chloride 20 MEQ TAB PO SCH ×3 (09:09→17:28)
[2017-04-01] MEDS: Multivit, Therapeutic 1 TAB PO SCH (09:11)
[2017-04-01] MEDS: cloNIDine 0.1 MG TAB PO SCH ×2 (09:11→20:53)
[2017-04-01] MEDS: predniSONE 20 MG TAB PO SCH (09:11)
[2017-04-01] MEDS: glyBURIDE 5 MG TAB PO SCH (09:11)
[2017-04-01] MEDS: glipiZIDE 5 MG TAB PO SCH (09:11)
[2017-04-01] MEDS: Torsemide 20 MG TAB PO SCH ×2 (09:12→14:03)
[2017-04-01] MEDS: Amiodarone 200 MG TAB PO SCH (09:13)
[2017-04-01] MEDS: Famotidine 20 MG TAB PO SCH ×2 (09:14→20:52)
[2017-04-01] MEDS: hydrALAZINE 25 MG TAB PO SCH ×3 (09:18→20:52)
[2017-04-01] MEDS: Apremilast [Otezla] 30 MG PO SCH ×2 (09:18→20:57)
[2017-04-01] MEDS: Insulin Regular 300 UNITS/3 ML VIAL SC PRN ×3 (09:20→17:33)
[2017-04-01 11:38] LABS: Potassium 3.8 mmol/L (3.5-5.1)
[2017-04-01] MEDS: Rosuvastatin 10 MG TAB PO SCH (20:53)
[2017-04-01] MEDS: Enoxaparin Sodium 40 MG/0.4 ML SYRINGE SC SCH (20:56)
[2017-04-02] MEDS: Mometasone/Formoterol 60 PUFF AER INH SCH (06:05)
[2017-04-02 06:41] VITALS: BP 120/67; TEMP 97.6
--- NOTE | 2017-04-02 08:12 | DIS ---
DATE OF ADMISSION: 03/24/2017 DATE OF DISCHARGE: 04/01/2017 DISCHARGE DIAGNOSES: Acute on chronic respiratory failure, chronic obstructive pulmonary disease, di astolic congestive heart failure, hypertension, paroxysmal atrial fibrillation, obstructive sleep lens cementer ea, depression, psoriasis, physical deconditioning, type 2 diabetes mellitus, coronary artery disease , and hypokalemia. PROCEDURES: None. HOSPITAL COURSE: A 77-year-old male who was initially admitted at [facility] in [place] for acute respiratory failure secondary to his underlying COPD and diastolic congestive heart failure. He was notably volume overloaded and was found to have RSV. The patient did have some medication adjustment s during his stay with his beta juan ramon and angiotensin receptor juan ramon being discontinued. He was treated for hypokalemia during his stay as well. He notably physically deconditioned and thus transi tioned to our facility to participate with physical therapy and occupational therapy. Upon arrival [facility], he was notably edematous with 2+ pitting edema to bilateral lower extremities with a weight of 3 34. Secondary to this, I changed his metolazone from p.r.n. to scheduled Wednesday, Wednesday, and ay. Patient's weight decreased from initial of 334 down to 313 on day of discharge. Subsequent to t his, he had to up titrate his potassium supplementation and appears to have stabilized on 80 mg p.o. t.i.d. The patient had been counseled on importance of weight loss going forward regarding his chron ic comorbidities. Due to this, he is motivated at this time to continue working on this issue. He w as able to participate with physical therapy and occupational therapy and sufficiently meet the goals to be able to discharge to his home setting where he will further participate with [facility] . The patient is agreeable to discharge home today and had sufficiently met his goals, he will do so . DISPOSITION: The patient will be discharged home. Follow up with myself in clinic next week. [facility] physical therapy via [facility]. DISCHARGE MEDICATIONS: Include metolazone 5 mg p.o. on Wednesday, Wednesday, and Wednesday; potassium 80 m Eq p.o. t.i.d. He will continue his usual medications including: ProAir 2 puffs q.4 hours p.r.n., a miodarone 200 mg p.o. daily, Otezla 30 mg 2 times a day, aspirin 81 mg Wednesday, Wednesday, and Wednesday, clobetasol topically b.i.d., clonidine 0.1 mg b.i.d., vitamin D 2000 units daily, fluoxetine 20 mg t .i.d., Breo 1 puff daily, glipizide 5 mg p.o. daily, glyburide 5 mg p.o. daily, hydralazine 25 mg p.o . t.i.d., hydrocortisone lotion p.r.n., Imdur 120 mg p.o. daily, Xyzal 5 mg p.o. at bedtime, multivitamin 1 tablet p.o. daily, MiraLax 17 grams p.o. daily, Crestor 20 mg p.o. at bedtime, Brilin ta 90 mg 2 times a day, torsemide 100 mg p.o. b.i.d., Coenzyme Q10 100 mg at bedtime.
[2017-04-02] MEDS: Potassium Chloride 20 MEQ TAB PO SCH (08:34)
[2017-04-02] MEDS: glipiZIDE 5 MG TAB PO SCH (08:36)
[2017-04-02] MEDS: glyBURIDE 5 MG TAB PO SCH (08:36)
[2017-04-02] MEDS: Multivit, Therapeutic 1 TAB PO SCH (08:36)
[2017-04-02] MEDS: Famotidine 20 MG TAB PO SCH (08:38)
[2017-04-02] MEDS: FLUoxetine HCl 10 MG CAP PO SCH (08:38)
[2017-04-02] MEDS: Torsemide 20 MG TAB PO SCH (08:39)
[2017-04-02] MEDS: hydrALAZINE 25 MG TAB PO SCH (08:40)
[2017-04-02] MEDS: cloNIDine 0.1 MG TAB PO SCH (08:41)
[2017-04-02] MEDS: predniSONE 20 MG TAB PO SCH (08:41)
[2017-04-02] MEDS: Amiodarone 200 MG TAB PO SCH (08:41)
[2017-04-02] MEDS: Polyethylene Glycol 3350 17 GM Packet PO SCH (08:42)
[2017-04-02] MEDS: Apremilast [Otezla] 30 MG PO SCH (08:43)
[2017-04-02] MEDS: Metolazone 5 MG TAB PO SCH (10:07)
== END 2017-04-02 10:45 | disposition home health service (06) | DRG 291 ==
LOC: BURMED 21:41
PROVIDERS: ADMIT Family Medicine; ATTEND Family Medicine
DX: I13.0 Hypertensive heart and chronic kidney disease with heart failure and stage 1 through stage 4 chronic kidney disease, or unspecified chronic kidney disease (principal); J96.20 Acute and chronic respiratory failure, unspecified whether with hypoxia or hypercapnia; E11.22 Type 2 diabetes mellitus with diabetic chronic kidney disease; I50.33 Acute on chronic diastolic (congestive) heart failure; E87.70 Fluid overload, unspecified; B97.4 Respiratory syncytial virus as the cause of diseases classified elsewhere; I48.0 Paroxysmal atrial fibrillation; Z99.81 Dependence on supplemental oxygen; G47.33 Obstructive sleep apnea (adult) (pediatric); F32.9 Major depressive disorder, single episode, unspecified; I25.10 Atherosclerotic heart disease of native coronary artery without angina pectoris; L40.9 Psoriasis, unspecified; J44.9 Chronic obstructive pulmonary disease, unspecified; E87.6 Hypokalemia; D72.829 Elevated white blood cell count, unspecified; N18.9 Chronic kidney disease, unspecified
CPT/HCPCS: 36415; 36416; 80053; 83735; 85025; 94664; A4216; G8978-GP-CL; G8979-GP-CK; G8987-GO-CL; G8988-GO-CJ; J1650; J1815; J7506; J7611; J7620

== ENCOUNTER 2017-11-01 14:14 | Outpatient (CLI) | payer MEDICARE ==
--- NOTE | 2017-11-01 20:09 | RAD ---
RIGHT HIP TWO VIEWS: 11/01/2017 FINDINGS: No acute fracture is seen. The articular surfaces are smooth, and the joint space is normal in width . A calcification is seen near the greater trochanter that is obviously not new. The adjacent pubic ring appears intact. IMPRESSION: 1. No acute findings. 2. No significant arthritic change. POS: HOME
== END 2017-11-01 14:15 | disposition home or self-care (01) ==
LOC: BURRAD 14:14
PROVIDERS: ATTEND Family Medicine
DX: M25.551 Pain in right hip (principal)

== ENCOUNTER 2018-04-20 14:12 | Emergency (ER) | payer MEDICARE, OTHER ==
[2018-04-20 14:46] LABS: #Basophils 0.1 thou/uL (0.0-0.2); #Eosinphils 0.2 thou/uL (0.0-0.7); #Lymphocytes 3.1 thou/uL (1.20-3.40); #Neutrophils 9.4 thou/uL (1.40-6.50); %Basophils 0.7 % (0.0-1.0); %Eosinophils 1.3 % (0.0-10.0); %Lymphocytes 22.2 % (21.0-51.0); %Monocytes 7.5 % (0.0-10.0); %Neutrophils 68.2 % (42.0-75.0); Hemoglobin 14.3 g/dL (14.0-18.0); Mean Corpuscular HGB CONC 32.5 g/dL (32.0-36.0); Mean Corpuscular Hemoglobin 25.7 pg (27.0-31.0); Mean Corpuscular Volume 79.2 fL (78.0-98.0); Platelet Count 318 thou/uL (130-400); RBC Distribution Width 15.3 % (11.5-14.5); Red Blood Cell (RBC) Count 5.57 mill/uL (4.70-6.10); White Blood Cell (WBC) Count 13.8 thou/uL (4.8-10.8)
[2018-04-20 15:03] LABS: ALT (SGPT) 77 U/L (8-55); AST (SGOT) 52 U/L (5-34); Albumin 4.3 g/dL (3.4-4.8); Alkaline Phosphatase 109 U/L (40-150); Anion Gap 17 mmol/L (10-20); BUN (Urea Nitrogen) 99 mg/dL (8.4-25.7); Bilirubin, Total 0.9 mg/dL (0.2-1.2); Calc. Creatinine Clearance 0 mL/min (70-130); Estimated GFR-MDRD 21; Globulin 3.9 g/dL (2.4-3.5); Glucose 266 mg/dL (83-110); Protein, Total 8.2 g/dL (5.8-8.1)
[2018-04-20 15:07] LABS: Chloride 77 mmol/L (98-107); Sodium 133 mmol/L (136-145)
[2018-04-20 15:35] LABS: Clarity Clear (Clear); Leukocyte Negative (Negative); Nitrite Negative (Negative)
[2018-04-20 15:36] LABS: Bilirubin Negative (Negative); Blood, Urine Trace (Negative); Glucose, Urine (Dipstick) Negative (Negative); Protein, Urine (Dipstick) Negative (Neg-Trace); Urobilinogen 0.2 mg/dL (0.2-1.0)
[2018-04-20 15:39] LABS: CKMB 2.9 ng/mL (0-6.6)
[2018-04-20 15:41] LABS: Bacteria/HPF None Seen HPF (None Seen); Crystals/HPF None Seen HPF (Negative); Hyaline Casts/LPF NONE SEEN LPF (0-3 Hyaline); Other Casts/LPF None Seen LPF (0-3 Hyaline); Oval Fat Bodies/HPF None Seen HPF (None Seen); RBC/HPF 0-3 HPF (0-3); Renal Epithelial None Seen HPF (0-3); Sperm/HPF None Seen HPF (None Seen); Squamous Epithelial None Seen HPF (0-3); Transitional Epithelial NONE SEEN HPF (0-3); Trichomonas/HPF None Seen HPF (None Seen); WBC/HPF None Seen HPF (0-3); Yeast-All Forms None Seen HPF (None Seen)
[2018-04-20 15:46] LABS: Carbon Dioxide 41 mmol/L (23-31)
--- NOTE | 2018-04-20 16:09 | CT ---
CT CERVICAL SPINE WITHOUT CONTRAST: 04/20/2018 COMPARISON: 12/05/2006 TECHNIQUE: Axial slices were acquired and coronal and sagittal reconstructions were done. FINDINGS: There is a flexion deformity of the neck, but no observable fracture. The prior scan showed straight ening of the cervical spine. Today, it is mostly straight but somewhat flexed, with an apex around t he C5-C6 level. There has been much increase in degenerative shredding machine knife changer the interval, especially at the C5-C6 level. This disk space and C6-C7 are quite narrow. No fracture or dislocation is seen at any level. The soft tissues are normal in thickness, and the C1 to dens distance is normal. Findin gs by level follow: C1-C2: No acute findings. C2-C3: Prominent left facet arthritis. Foramina are patent. C3-C4: Left facet arthritis. Some mild bilateral foraminal narrowing, left more than right. C4-C5: Right facet arthritis. C5-C6: Disk osteophyte complex. Mild bilateral foraminal narrowing. C6-C7: Presumed disk osteophyte complex. Mild bilateral foraminal narrowing. The AP diameter of th e spinal canal at this point is approximately 9 mm. C7-T1: No acute findings. T1-T2: No acute findings. The lung apices are clear. A calcified granuloma is seen in the right lung apex. IMPRESSION: Prominent degenerative changes, which have worsened considerably since the 2006 CT. This is particul jose alejandro true at the C5-C6 level. There is flexion of the neck, which could be a combination of muscle s pasm and his normal state. Called to Dr Redd @ [id number]. POS: HOME
--- NOTE | 2018-04-20 16:12 | CT ---
CT FACIAL BONES WITHOUT CONTRAST: 04/20/2018 HISTORY: A spiral CT of the face is performed for evaluation following trauma. TECHNIQUE: Axial slices are acquired, followed by coronal and sagittal reconstructions. FINDINGS: No fracture is seen involving the facial bones. The zygomatic arches, orbital rims, maxillary region , nasal bones, and mandible all appear intact. There is some mucosal thickening in the sinuses, with what appears to be a small polyp in the anterior part of the left maxillary sinus. It measures abou t 1.1 cm in size. There is a small area of mucosal thickening or minimal amount of fluid on the righ t size of the sphenoid sinus. Mild nasoseptal deviation to the left is probably chronic. The retroo rbital areas appears normal. IMPRESSION: Some chronic changes as noted, but no acute traumatic findings. Called to Dr. Redd @ [phone]. POS: HOME
--- NOTE | 2018-04-20 16:14 | CT ---
CT OF THE BRAIN WITHOUT CONTRAST: 04/20/[address] was done. There are no prior scans available for comparison. There is an area of encephalomalacia in the right frontal lobe consistent with an old right frontal s troke. Additionally, there is a focal hyperdense area around the frontal horn of the left lateral shakila tricle. In the context of recent trauma, a small amount of parenchymal bleeding is suspected. It javid ures about 1 cm in size. I do not see any extra-axial hematomas of any kind. Diffuse atrophy is present. The ventricular sizes are commensurate with the degree of atrophy and age . No mass was evident elsewhere. The posterior fossa showed no acute findings. There is a little mucosal thickening in the posterior part of the right sphenoid sinus. While it coul d be fluid, there was no evidence of a basilar skull fracture around it or in the vicinity. Some muco jeni thickening is seen in the paranasal sinuses elsewhere. There is probably a small polyp or cyst in the left maxillary sinus. There is opacification of a few of the mastoid air cells on the right side near the tip of the mastoid process. IMPRESSION: 1. 1 cm hyperdense focus adjacent to the frontal horn of the left lateral ventricle. A small are a of parenchymal hemorrhage is presumed, given the history of recent trauma. 2. 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 Called to Dr. Redd @ [phone]. POS: HOME
--- NOTE | 2018-04-20 16:14 | RAD ---
CHEST TWO VIEWS: 04/20/2018 COMPARISON: 03/12/2018 FINDINGS: There has been no adverse interval change. The heart is upper normal in size but the same. There is mild hyperinflation of the lungs with flattening of the diaphragm, consistent with a history of COPD. The lungs are fully inflated and clear. No infiltrate or effusion is seen. The mediastinum shows no widening or shift. No gross bony fractures are detected. IMPRESSION: Chronic changes but no acute finding. POS: HOME
== END 2018-04-20 16:45 | disposition short-term general hospital (02) ==
LOC: BURERS 14:12
DX: S06.350A Traumatic hemorrhage of left cerebrum without loss of consciousness, initial encounter (principal); I11.0 Hypertensive heart disease with heart failure; I50.9 Heart failure, unspecified; E78.5 Hyperlipidemia, unspecified; J44.9 Chronic obstructive pulmonary disease, unspecified; E11.40 Type 2 diabetes mellitus with diabetic neuropathy, unspecified; G47.30 Sleep apnea, unspecified; F32.9 Major depressive disorder, single episode, unspecified; Z87.891 Personal history of nicotine dependence; Z79.82 Long term (current) use of aspirin; Z79.51 Long term (current) use of inhaled steroids; Z79.899 Other long term (current) drug therapy; X58.XXXA Exposure to other specified factors, initial encounter
CPT/HCPCS: 70450; 70486; 71046; 72125; 80053; 81003; 81015; 82553; 83605; 84484; 85025; 93005; 94760; 96360